=== PATIENT | male | born 1950 | race Caucasian/White ===

== ENCOUNTER → 2017-07-12 | Outpatient (CLI) | payer BC, MEDICARE ==
--- NOTE | 2017-07-12 08:39 | CTL ---
EXAMINATION TYPE: CT Low Dose Lung DATE OF EXAM ORDERED: 07/12/2017 COMPARISON: None HISTORY: . Low Dose CT Lung Screening CT DLP: [address] CTDI: 3.1 mGy IV CONTRAST USED: None. SCREENING VISIT: First visit COMPARISON: None. TECHNIQUE: Low dose computed tomography scan was performed through the chest at 1 millimeter thick se ctions and reconstructed images in the coronal plane at [address] DIAGNOSTIC QUALITY: Satisfactory FINDINGS: LUNG NODULES: Not presentLeft lung: no nodules identified.Right lung: no nodules identified. LUNGS: COPD: Severity: Mild Fibrosis: Severity:None Lymph nodes: None Other findings: Chronic post inflammatory change left upper lobe. Linear parenchymal scar. RIGHT PLEURAL SPACE: Effusion: None Calcification: None Thickening: None Pneumothorax: None LEFT PLEURAL SPACE: Effusion: None Calcification: None Thickening: None Pneumothorax: None HEART: Heart Size: Mildly enlarged Coronary calcification: Moderate Pericardial effusion: None OTHER FINDINGS: Upper abdomen: No significant abnormality Bony thorax: Degenerative changes Supraclavicular region: No significant abnormalityOther: No significant abnormalityI IMPRESSION: No suspicious nodules identified. FOLLOW UP CT CHEST RECOMMENDATION: Follow-up screening in one year CT LUNG RAD: Negative LUNG RAD CATEGORY category 1
--- NOTE | 2017-07-12 08:53 | US ---
EXAMINATION TYPE: US duplex aorta DATE OF EXAM: 07/12/2017 COMPARISON: NONE CLINICAL HISTORY: 66-year-old male Z13.6 screening for cardiovascular disorder. Previous smoker, no f amily hx of AAA, HTN, high cholesterol . TECHNIQUE: Multiple sonographic images of the abdominal aorta are obtained. FINDINGS: COFFEE WEIGHER NOTES: Suboptimal exam due to overlying bowel gas. EXAM MEASUREMENTS: Abdominal Aorta: Proximal: 2.1 x 2.4 cm Mid: 1.6 x 1.8 cm Distal: 1.6 x 1.9 cm Bifurcation: Right- 0.7 x 1.2 cm Left- 0.8 x 1.3 cm Incidentally, there is diffuse increased echogenicity of the liver. IMPRESSION: 1. Exam limitations due to prominent shadowing from bowel gas. No evidence for AAA. 2. Incidental hepatic steatosis.
== END | disposition home or self-care (01) ==
LOC: RADUSMAIN 07:44
PROVIDERS: ATTEND Family Medicine
DX: Z12.2 Encounter for screening for malignant neoplasm of respiratory organs (principal); Z87.891 Personal history of nicotine dependence; Z13.6 Encounter for screening for cardiovascular disorders
CPT/HCPCS: 93979; G0297

== ENCOUNTER 2017-10-20 06:44 | Day surgery (SDC) | payer BC ==
[2017-10-15 13:10] VITALS: BMI 31.0
--- NOTE | 2017-10-19 12:39 | HP ---
HISTORY AND PHYSICAL DATE OF SERVICE: 10/20/2017 Dave Brewster is a 67-year-old patient seen with progressive right shoulder pain. Treatment options were discussed. He elected to proceed with shoulder arthroscopy. Consent regarding procedure was obtained. Medical clearance was provided by Dr. Leal. PAST MEDICAL HISTORY: Hyperlipidemia, [id number] diabetes, COPD. PAST SURGICAL HISTORY: Herniorrhaphy. DAILY MEDICATIONS: 1. Ibuprofen. 2. Losartan. 3. Lovastatin. 4. Metformin. 5. Guy. 6. Potassium. ALLERGIES: None reported. SOCIAL HISTORY: Patient denies tobacco use. PHYSICAL EVALUATION RIGHT SHOULDER: Flexion 80 degrees, abduction 80 degrees, external rotation is 20 degrees. Tenderness along the anterior lateral acromion and rotator cuff insertion site. Positive impingement 80 degrees. Drop-arm sign is positive. Distal neurovascular exam is intact. RIGHT SHOULDER RADIOGRAPHS: Revealed a type 2 anterior acromioclavicular joint osteoarthritis and cystic changes of the greater tuberosity. A right shoulder MRI revealed a rotator cuff tendon tear. IMPRESSION: 1. Right shoulder impingement with rotator cuff tear and acromioclavicular joint osteoarthritis. 2. Hypertension. 3. Hyperlipidemia. PLAN: Right shoulder arthroscopy with subacromial decompression, probable arthroscopic rotator cuff repair, probable Freida procedure and debridement. MMODL / IJN: [id number] /
[~2017-10-20 06:44] MED LIST: ceFAZolin IN SWFI 2 GM/20 ML SYRINGE IVP ONE
[2017-10-20] MEDS ORDERED: LIDOCAINE 1% 20 ML VIAL (10MG/ML) FOR IV START INTRADERMA PRN (06:52)
[2017-10-20] MEDS ORDERED: fentaNYL (PF) 50 MCG/ML 20 ML VIAL IVP PRN (06:52)
[2017-10-20] MEDS ORDERED: MIDAZOLAM 2 MG/2 ML VIAL IV PRN (06:52)
[2017-10-20] MEDS ORDERED: LACTATED RINGERS 1,000 ML IV SCH (06:52)
[2017-10-20] MEDS ORDERED: HYDROmorphone 0.5 MG/0.5 ML SYRINGE IVP PRN (06:52)
[2017-10-20] MEDS ORDERED: ONDANSETRON 4 MG/2 ML VIAL IVP ONE (06:52)
[2017-10-20] MEDS ORDERED: DEXAMETHASONE SOD PHOSPHATE 10 MG/ML 1 ML VIAL IV ONE (06:52)
[2017-10-20 07:45] LABS: Glucose,Whole Blood 124 mg/dL (75-99)
[2017-10-20] MEDS ORDERED: SUCCINYLCHOLINE CHLORIDE 100 MG/5 ML SYR IV ONE (08:30)
[2017-10-20] MEDS ORDERED: PROPOFOL 10 MG/ML 20 ML VIAL IV ONE (08:30)
[2017-10-20] MEDS ORDERED: ROPIVACAINE 5 MG/ML 30 ML VIAL ONE (08:30)
[2017-10-20] MEDS ORDERED: LIDOCAINE 2%-EPI 1:100,000 20 ML VIAL ONE (08:30)
[2017-10-20] MEDS ORDERED: LIDOCAINE 1% INJ 10MG/ML (20 ML MDV) ONE (08:30)
[2017-10-20] MEDS ORDERED: fentaNYL (PF) 50 MCG/ML 2 ML AMP ONE (08:30)
--- NOTE | 2017-10-20 09:17 | P.ONQ ---
Anesthesiology Proc Note - PNB - Peripheral Nerve Block Performed Right Interscalene Indication: Acute Post-Operative Pain, Requested by physician (Sole) Sedation Type: Sedate with meaningful contact maintained Preparation: Sterile Prep Position: Supine Catheter: None Needle Types: Other (see comment) (Stu) Needle Size: 50mm (2") Needle Gauge: 20, 21 Technique: Ultrasound (13cc Ropivacaine, 13cc Lidocaine 1% with 1:100,000 epi) Blood Aspirated: No Pain Paresthesia on Injection Noted: No Resistance on Injection: Normal Events: Uneventful and Well Tolerated
[2017-10-20] MEDS ORDERED: LACTATED RINGERS 1,000 ML IV ONE (10:17)
--- NOTE | 2017-10-20 10:40 | P.OP ---
Date of Procedure: 10/20/17 Preoperative Diagnosis: Right shoulder impingement Postoperative Diagnosis: 1. Right shoulder rotator cuff tear 2. Right shoulder impingement 3. Right shoulder acromioclavicular joint osteoarthritis 4. Right shoulder partial biceps tendon tear 5. Right shoulder anterior/superior labral tears 6. 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 Right shoulder grade 2/3 chondromalacia glenoid fossa Procedure(s) Performed: 1. Right shoulder arthroscopic rotator cuff repair 2. Right shoulder arthroscopic subacromial decompression 3. Right shoulder arthroscopic Freida procedure 4. Right shoulder arthroscopic biceps tenotomy 5. Right shoulder arthroscopic debridement labral tear 6. Right shoulder arthroscopic chondroplasty humeral head 7. Right shoulder arthroscopic chondroplasty glenoid Implants: 5-peek anchors Anesthesia: GETA, regional (Interscalene block) Surgeon: Danielito Whipple Millwright #1: Dereck Jarquin Estimated Blood Loss (ml): 15 Pathology: none sent Condition: stable Disposition: PACU Indications for Procedure: 67-year-old patient seen with progressive right shoulder pain. After treatment options were discussed, he elected to proceed with arthroscopy. Operative Findings: see description of procedure Description of Procedure: Patient underwent a shoulder block by department of anesthesia. The patient was then taken to the operative suite. The patient underwent a general anesthetic by the department of anesthesia. The patient was placed into a lateral position and secured. There was appropriate padding of the bony prominence. Right shoulder was then prepped and draped in normal sterile orthopedic fashion. We placed the extremity in 10 pounds of longitudinal traction. A posterior incision was now made for a posterior working portal site. The trocar and cannula were inserted into the glenohumeral joint. Arthroscopy was initiated. Spinal needle was now inserted anteriorly, to ascertain the anterior working portal site. An incision was now made in that area, a trocar was inserted followed by a probe. There was superficial tearing of the anterior and superior labrum present. There was partial tearing long head biceps tendon present. There was no obvious large rotator cuff tear clearly visualized from the glenohumeral side. There was an area of grade 3/4 chondromalacia of the humeral head with some peripheral osteochondral tears. That area was central and measured approximately 2 x 3 cm. There was an area of grade 2/3 chondromalacia of the glenoid anteriorly. There was some osteochondral tears present there as well. The posterior and inferior labrum were found to be stable. I performed an arthroscopic biceps tenotomy. I debrided the labral tears down to stable tissue. Chondroplasty performed of both the humeral head and glenoid fossa down to stable osteochondral tissue. The residual labrum and osteochondral areas were found to be stable. Instruments were now removed from glenohumeral joint. Utilizing the posterior working portal site, the trocar and cannula were inserted into the subacromial space. Arthroscopy initiated. I made an incision 2 fingerbreadths lateral to the acromion. I introduced my trocar followed by my ArthroCare ablator. I now began ablating thick subacromial bursal tissue, which exposed the undersurface of the anterior acromion. This was diminished subacromial space. There was a very prominent anterior acromion. A motorized bur was introduced and a subacromial decompression was performed. I also excised some osteophytes off the inferior aspect of the distal clavicle. The AC joint was visualized and noted to be fairly arthritic. Our motorized bur was introduced in the anterior portal site and a Freida procedure was performed without difficulty, decompressing the AC joint nicely. I turned my attention to the rotator cuff. There was a distal supraspinatus rotator cuff tendon tear present. The measured approximately 2.5 cm and retracted approximately 1 cm. I debrided the margins getting down to stable tendon tissue. I abraded the footprint with a motorized bur. I created an building surveyor he portal site off the lateral acromion. I introduced 2 medial row anchors with 2 sutures each. We passed all 8 limbs of suture through good bites of rotator cuff tendon. We noted potential areas of dogears anteriorly and posteriorly. I passed 3 suture loop sutures pull the tendon over the footprint and introduced a far lateral anchor. I now crisscrossed our 8 sutures and introduced 2 additional lateral anchors compressing the tendon along the footprint very nicely. All residual suture limbs were clipped. We had a good stable repair. I injected 1 mL of UCT intra-articular. Instruments now removed from the portal sites. All portal sites were approximated with nylon suture. Sterile dressings were applied followed by a shoulder immobilizer. Amish BRADSHAW assisted with the procedure. The patient was awakened, transferred to a bed, and taken to recovery in stable condition.
[2017-10-20 10:45] VITALS: TEMP 96
[2017-10-20] MEDS ORDERED: diphenhydrAMINE 50 MG/ML 1 ML VIAL IM ONE (10:49)
[2017-10-20 11:20] VITALS: RESP 18
[2017-10-20 11:55] VITALS: BP 117/70; PULSE 73
== END 2017-10-20 12:45 | disposition home or self-care (01) ==
LOC: OR 06:44
PROVIDERS: ATTEND Orthopaedic Surgery
DX: M75.101 Unspecified rotator cuff tear or rupture of right shoulder, not specified as traumatic (principal); M75.41 Impingement syndrome of right shoulder; M19.011 Primary osteoarthritis, right shoulder; S46.111A Strain of muscle, fascia and tendon of long head of biceps, right arm, initial encounter; X58.XXXA Exposure to other specified factors, initial encounter; S43.431A Superior glenoid labrum lesion of right shoulder, initial encounter; M94.211 Chondromalacia, right shoulder; M25.711 Osteophyte, right shoulder; E78.5 Hyperlipidemia, unspecified; E11.9 Type 2 diabetes mellitus without complications; Z79.84 Long term (current) use of oral hypoglycemic drugs; J44.9 Chronic obstructive pulmonary disease, unspecified; Z79.899 Other long term (current) drug therapy; Z79.891 Long term (current) use of opiate analgesic
CPT/HCPCS: 64415; 29826; 29827; 29824; C1713 ×2; C1765; J2250; J1200; J1100; J2405; J2001; J3010; J2795; J0330; J2704; J0690

== ENCOUNTER → 2018-08-08 | Outpatient (CLI) | payer MEDICARE, BC ==
--- NOTE | 2018-08-08 09:48 | CTL ---
EXAMINATION TYPE: CT Low Dose Lung DATE OF EXAM ORDERED: 08/08/2018 HISTORY: Z 87.891. Lung cancer screening CT DLP: [address] CTDI: 2.49 mGy Automated exposure control for dose reduction was used. SCREENING VISIT: 2 COMPARISON: Prior exam 07/12/2017 low dose lung screening TECHNIQUE: Low dose computed tomography scan was performed through the chest at 1 mm thick sections a nd reconstructed images in the coronal plane at [address] DIAGNOSTIC QUALITY: Satisfactory FINDINGS: LUNG NODULES: None. LUNGS: COPD: Severity: Mild Fibrosis: Severity: Mild, some minimal lingula scarring persists on the left Lymph nodes: Not enlarged Other findings: Lingular scarring RIGHT PLEURAL SPACE: Effusion: None Calcification: None Thickening: None Pneumothorax: Not present LEFT PLEURAL SPACE: Effusion: None Calcification: None Thickening: None Pneumothorax: Not present HEART: Heart Size: Normal Coronary calcification: Three-vessel Pericardial effusion: Not present OTHER FINDINGS: Upper abdomen: Suspect a small hiatal hernia. Liver shows low attenuation possibly due to underlying hepatic steatosis. Bony thorax: Thoracic spondylosis is present Supraclavicular region: Unremarkable Other: No significant abnormality. IMPRESSION: Negative FOLLOW UP CT CHEST RECOMMENDATION: [address] LUNG RAD: 1
== END | disposition home or self-care (01) ==
LOC: RADCTMAIN 08:03
PROVIDERS: ATTEND Family Medicine
DX: Z12.2 Encounter for screening for malignant neoplasm of respiratory organs (principal); Z87.891 Personal history of nicotine dependence

== ENCOUNTER → 2020-05-21 | Outpatient (CLI) | payer MEDICARE, BC ==
--- NOTE | 2020-05-21 09:01 | CT ---
EXAMINATION TYPE: CT iac wo con DATE OF EXAM: 05/21/2020 COMPARISON: None HISTORY: Lt Ear Cholesteatoma CT DLP: 150mGycm Automated exposure control for dose reduction was used. FINDINGS: The external auditory canals are patent bilaterally. Mastoid air cells show no evidence of abnormal opacification bilaterally. The middle ear ossicles are symmetric and unremarkable. There is no evidence of suspicious surrounding soft tissue density to suggest cholesteatoma. The scutum is preserved bilaterally. The cochlea and the semicircular canals are symmetric and unremarkable. Ves tibular aqueduct and internal carotid canal appear unremarkable. Temporomandibular joints are mainta ined bilaterally. Changes of chronic sinusitis noted. Nasopharynx and visualized oropharynx symmetric. Visualized parot id glands have a normal appearance. Intraorbital and intracranial structures visualized are symmetric . IMPRESSION: 1. No diagnostic evidence of a cholesteatoma.
== END | disposition home or self-care (01) ==
LOC: RADCTMAIN 08:35
PROVIDERS: ATTEND Family Medicine
DX: H71.92 Unspecified cholesteatoma, left ear (principal)
CPT/HCPCS: 70480

== ENCOUNTER → 2021-04-08 | Outpatient (CLI) | payer MEDICARE, BC ==
--- NOTE | 2021-04-08 21:37 | CTL ---
EXAMINATION TYPE: CT Low Dose Lung DATE OF EXAM ORDERED: 04/08/2021 HISTORY: Personal nicotine dependence. Lung cancer screening CT DLP: [address] CTDI: 2.14 mGy Automated exposure control for dose reduction was used. SCREENING VISIT: Follow-up COMPARISON: 08/08/2018 TECHNIQUE: Low dose computed tomography scan was performed through the chest at 1 mm thick sections a nd reconstructed images in the coronal plane at [address] DIAGNOSTIC QUALITY: Satisfactory FINDINGS: LUNG NODULES: None. LUNGS: COPD: Severity: None Fibrosis: Severity: None Lymph nodes: No enlarged lymphadenopathy Other findings: None RIGHT PLEURAL SPACE: Effusion: None Calcification: None Thickening: None Pneumothorax: None LEFT PLEURAL SPACE: Effusion: None Calcification: None Thickening: None Pneumothorax: None HEART: Heart Size: Normal Coronary calcification: Moderate Pericardial effusion: None OTHER FINDINGS: Upper abdomen: Normal Bony thorax: Normal Supraclavicular region: Normal Other: Ascending thoracic aorta at the level the main pulmonary artery measures 4.0 cm. The main pul monary artery at the bifurcation measures 2.6 cm. IMPRESSION: 1. No suspicious changes to suggest neoplasm. 2. Ascending thoracic aortic aneurysm. FOLLOW UP CT CHEST RECOMMENDATION: Yes, low-dose CT chest one year CT LUNG RAD: 2
== END | disposition home or self-care (01) ==
LOC: RADCTMAIN 06:38
PROVIDERS: ATTEND Family Medicine
DX: I71.2 Thoracic aortic aneurysm, without rupture (principal); Z87.891 Personal history of nicotine dependence
CPT/HCPCS: 71271

== ENCOUNTER → 2021-05-12 | Outpatient (CLI) | payer MEDICARE, BC ==
--- NOTE | 2021-05-12 10:58 | ECHOF ---
Referral Reason:I10 Hypertension MEASUREMENTS -------- HEIGHT: 172.7 cm WEIGHT: 95.3 kg BP: 136/63 RVIDd: 3.3 cm (< 3.3) IVSd: 1.4 cm (0.6 - 1.1) LVIDd: 3.9 cm (3.9 - 5.3) LVPWd: 1.4 cm (0.6 - 1.1) IVSs: 1.7 cm LVIDs: 2.6 cm LVPWs: 2.0 cm LA Diam: 3.7 cm (2.7 - 3.8) LAESV Index (A-L): 22.15 ml/m Ao Diam: 3.7 cm (2.0 - 3.7) AV Cusp: 2.2 cm (1.5 - 2.6) MV EXCURSION: 22.560 mm (> 18.000) MV EF SLOPE: 29 mm/s (70 - 150) EPSS: 0.4 cm MV E Brad: 1.03 m/s MV DecT: 271 ms MV A Brad: 0.93 m/s MV E/A Ratio: 1.10 RAP: 5.00 mmHg RVSP: 37.87 mmHg FINDINGS -------- Sinus rhythm. This was a technically adequate study. The left ventricular size is normal. There is moderate concentric left ventricular hypertrophy. O verall left ventricular systolic function is low-normal with, an EF between 50 - 55 %. Basal inferi or LV wall motion is hypokinetic. Basal inferoseptal LV wall motion is hypokinetic. The right ventricle is mildly enlarged. Normal LA size by volume 22+/-6 ml/m2. The right atrium is normal in size. Interatrial and interventricular septum intact. There is mild aortic valve sclerosis. The mitral valve leaflets are mildly thickened. Argd-hv-hjubwaxw mitral regurgitation is present. There is mild mitral valve prolapse , predominately a posteriorly directed jet. Mild prolapse of t he anterior mitral valve leaflet. Mild tricuspid regurgitation present. There is mild pulmonary hypertension. The right ventricular systolic pressure, as measured by Doppler, is 37.87mmHg. The pulmonic valve was not well visualized. The aortic root size is normal. Normal inferior vena cava with normal inspiratory collapse consistent with estimated right atrial pre ssure of 5 mmHg. There is no pericardial effusion. CONCLUSIONS -------- 1. The left ventricular size is normal. 2. There is moderate concentric left ventricular hypertrophy. 3. Overall left ventricular systolic function is low-normal with, an EF between 50 - 55 %. 4. Basal inferior LV wall motion is hypokinetic. 5. Basal inferoseptal LV wall motion is hypokinetic. 6. The right ventricle is mildly enlarged. 7. Normal LA size by volume 22+/-6 ml/m2. 8. There is mild aortic valve sclerosis. 9. The mitral valve leaflets are mildly thickened. 10. Jnfr-qc-yxezttgx mitral regurgitation is present. 11. There is mild mitral valve prolapse. 12. , predominately a posteriorly directed jet. 13. Mild prolapse of the anterior mitral valve leaflet. 14. Mild tricuspid regurgitation present. 15. There is mild pulmonary hypertension. 16. The right ventricular systolic pressure, as measured by Doppler, is 37.87mmHg. 17. There is no pericardial effusion. CAR PACKER: Doreen Monae RDCS
--- NOTE | 2021-05-12 13:11 | NM ---
EXAMINATION TYPE: NM stress lexiscan cardiolite DATE OF EXAM: 05/12/2021 COMPARISON: NONE HISTORY: I10 Hypertension TECHNIQUE: After the intravenous administration of 9.9 mCi Tc 99m Sestamibi - Cardiolite resting SPE CT images acquired 45 minutes post injection. The patient received 0.4mg Lexiscan, 24.7 mCi Tc 99m Sestamibi - Stress images obtained [address] injection FINDINGS: Review of stress and rest SPECT images demonstrates decreased perfusion involving the apical lateral wall on both rest and stress images although there are areas that appear to worsen suggesting underly ing stress-induced ischemia. Gated analysis shows normal wall motion with an estimated left ventricul ar ejection fraction of 52 %. IMPRESSION: Areas of a remote insult as noted above with interposed areas of stress-induced ischemia.
--- NOTE | 2021-05-12 15:22 | EST ---
EXERCISE STRESS DATE OF SERVICE: 05/12/2021 AGE: 70 SEX: M HT: 5'8" WT: 210 lbs. PROTOCOL: Lexiscan STAGE: NA DURATION OF EXERCISE: NA HEART RATE REST: 79 BLOOD PRESSURE REST: 142/71 MAXIMUM HEART RATE ACHIEVED: 94 MAXIMUM BLOOD PRESSURE: 146/72 85% MPHR: 128 100% MPHR: 150 METS: NA INDICATIONS: Hypertension CLINICAL INFORMATION: STRESS DATA: Heart rate 79, pressure is 142/71 mmHg. Baseline EKG showed sinus mechanism. Lexiscan in the amount of 0.4 mg was given over 15 seconds per protocol. Max heart rate was 94 beats per minute. Maximum pressure was 142/71 mmHg. Clinically the patient did not have any symptoms and the EKG did not show any significant ST or T- wave abnormalities concerning for ischemia. CONCLUSION: 1. Nondiagnostic electrocardiogram stress testing in response to Lexiscan. 2. Please follow up on the Cardiolite portion on a separate report from Radiology Department. MMODL / IJN: [id number] /
== END | disposition home or self-care (01) ==
LOC: RADECHMAIN 08:49
PROVIDERS: ATTEND Family Medicine
DX: I34.0 Nonrheumatic mitral (valve) insufficiency (principal); I27.20 Pulmonary hypertension, unspecified
CPT/HCPCS: 93017; 93306; 78452; A9500

== ENCOUNTER → 2022-01-02 | Outpatient (CLI) | payer MEDICARE, BC ==
--- NOTE | 2022-01-02 11:25 | MR ---
EXAMINATION TYPE: MR brain and iac wo/w con DATE OF EXAM: 01/02/2022 COMPARISON: CT internal auditory canal 05/21/2020 HISTORY: Dizziness and giddiness TECHNIQUE: Multiplanar, multisequence images of the brain and brainstem is performed without and with IV contras t, utilizing 10 mL intravenous Gadavist. Small ofiey-jv-xgge and high resolution images through the i nternal auditory canals. FINDINGS: Diffusion weighted images demonstrate no evidence of a recent infarct or other diffusion ab normality. There is no extra-axial fluid collection. Periventricular and pericallosal confluent, sca ttered and subcortical hyperintensities are present on inversion recovery T2-weighted sequences. The ventricular system and cisternal spaces are normal in size and appearance. The brain volume is age a ppropriate, cortical atrophy is present. Internal auditory canal show no abnormal enhancement, no evident mass, there is no cerebellopontine a ngle abnormality. Midline structures demonstrate normal morphology. The craniocervical junction appears within normal limits. Post contrast images demonstrate no abnormal enhancement. The dural venous sinuses appear pa tent. The visualized sinuses are remarkable for inflammatory and the globes are intact. IMPRESSION: Normal internal auditory canals. Age-related changes of atrophy and chronic small vessel ischemia. Sinus disease.
== END | disposition home or self-care (01) ==
LOC: RADMRIMAIN 09:10
PROVIDERS: ATTEND Family Medicine
DX: I67.82 Cerebral ischemia (principal); G31.9 Degenerative disease of nervous system, unspecified
CPT/HCPCS: 70553; A9585

== ENCOUNTER → 2023-05-04 | Outpatient (CLI) | payer MEDICARE, BC ==
--- NOTE | 2023-05-09 22:35 | MR ---
EXAMINATION TYPE: MR brain wo/w con DATE OF EXAM: 05/04/2023 COMPARISON: 01/02/2022 HISTORY: 72-year-old male R51.9, headache, R41.3, amnesia, Headache, dizziness, memory impairment. TECHNIQUE: Multiplanar, multisequence images of the brain and brainstem were acquired before and aft er administration of 7.5 mL IV Gadavist. Diffusion weighted imaging is performed. FINDINGS: No evidence for acute infarction, hemorrhage, mass, mass effect, midline shift, herniation, effacemen t of basal cisterns, or extra-axial fluid collection. Major intracranial flow voids are intact. T2/FLAIR weighted sequences show moderate patchy and scattered bright white matter foci throughout th e periventricular, deep white matter, and subcortical regions of both cerebral hemispheres, overall u nchanged from prior. There is moderate generalized supratentorial volume loss. Hydrocephalus with Aric's ratio of 0.38 is slightly increased from 01/02/2022. Midline structures demonstrate normal morphology. The craniocervical junction is normal. Post contrast images demonstrate no evidence of pathologic enhancement. Dural venous sinuses are pat ent. Moderate mucosal thickening ethmoid air cells. 1.8 cm mucosal retention cyst floor of the left maxill evon sinus. Globes are intact. IMPRESSION: 1. Moderate generalized atrophy. Mild to moderate hydrocephalus may be on an ex vacuo basis from cent ral cerebral atrophy but shows slight interval increase from 01/02/2022. Correlate to exclude a compone nt of NPH. 2. Chronic T2 bright white matter change with moderate burden likely relating to chronic small vessel ischemic disease. 3. No acute intracranial abnormality seen.
== END | disposition home or self-care (01) ==
LOC: RADMRIMAIN 10:02
PROVIDERS: ATTEND Family Medicine
DX: G31.9 Degenerative disease of nervous system, unspecified (principal); G91.9 Hydrocephalus, unspecified; R51.9 Headache, unspecified; R90.82 White matter disease, unspecified
CPT/HCPCS: 70553; A9585

== ENCOUNTER → 2023-07-19 | Outpatient (CLI) | payer MEDICARE, BC ==
--- NOTE | 2023-07-19 16:31 | MR ---
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 The patient was then given intravenous contrast and multi planar, T1 fat-saturation images wer e obtained. IV Contrast: 9 cc Gadavist FINDINGS: Similar generalized atrophy with dilation of the ventricular system i which is s not significantly ch anged. Cerebral atrophy with proportional dilation of ventricular system. Diffusion-weighted imaging shows no evidence of restricted diffusion to suggest acute/subacute infarct. Intracranial arterial f low voids are maintained. Midline structures show no abnormality. Scattered foci of high T2 signal in tensity are seen within the periventricular white matter. The susceptibility weighted images do not r eveal any evidence for micro-hemorrhage. After administration of gadolinium, no abnormal enhancement is seen. The bone marrow signal is within normal limits. Paranasal sinuses and mastoid air cells: Mild mucosal thickening of the left maxillary sinus. Visualized orbits: Orbital contents are intact. IMPRESSION: 1. Stable dilation of ventricular system with generalized cerebral atrophy. No evidence of intracrani al mass, acute/subacute infarct, or abnormal enhancement. 2. Nonspecific white matter changes, likely related to small vessel ischemic disease.
== END | disposition home or self-care (01) ==
LOC: RADMRIMAIN 13:08
PROVIDERS: ATTEND Family Medicine
DX: G91.2 (Idiopathic) normal pressure hydrocephalus (principal); R90.82 White matter disease, unspecified; G31.1 Senile degeneration of brain, not elsewhere classified
CPT/HCPCS: 70553; A9585

== ENCOUNTER 2023-08-18 12:51 | Inpatient (IN) | payer MEDICARE, BC ==
[2023-08-18] MEDS ORDERED: IPRATROPIUM-ALBUTEROL 3 ML NEB INHALATION STA (13:39)
[2023-08-18] MEDS ORDERED: SODIUM CHLORIDE 0.9% 1,000 ML IV STA (13:39)
--- NOTE | 2023-08-18 13:44 | ED ---
URI HPI - General Chief Complaint: Upper Respiratory Infection Stated Complaint: Cough,Low O2 Time Seen by Provider: 08/18/23 13:37 Source: patient, RN notes reviewed, old records reviewed, Caregiver Mode of arrival: ambulatory Limitations: no limitations - History of Present Illness Initial Comments: This is a 72-year-old male to the emergency department for evaluation weakness patient breath difficulty breathing breath for a week now. Not getting out of bed and just sleeping at home patient is significantly sick mL, increasing weakness increasing shortness of breath and persistent debility with low oxygen levels and difficulty catching his breath or chest pain MD Complaint: fever, cough, sore throat, nasal congestion -: week(s) Severity: moderate Severity scale (1-10): 6 Consistency: constant Improves With: nothing Worsens With: nothing Associated Symptoms: fever, chills Treatments Prior to Arrival: none - Related Data Home Medications Medication Instructions Recorded Confirmed Ascorbic Acid [Vitamin C] 500 mg PO DAILY 01/09/22 08/18/23 Fish Oil/Dha/Epa [Fish Oil 1,200 1 cap PO DAILY 01/09/22 08/18/23 mg Fish Oil] Multivit-Min/Folic/Vit K/Lycop 1 tab PO DAILY 01/09/22 08/18/23 [Men's Multivitamin Tablet] Cyanocobalamin (Vitamin B-12) 2,500 mcg PO DAILY 08/18/23 08/18/23 [Vitamin B-12] Dapagliflozin Propanediol [Farxiga] 10 mg PO DAILY 08/18/23 08/18/23 Lovastatin [Mevacor] 20 mg PO DAILY 08/18/23 08/18/23 Phenyleph/Acetaminophn/Doxylam 1 cap PO Q4H PRN 08/18/23 08/18/23 [Vicks Dayquil-Nyquil Sinex Cap] Previous Rx's Medication Instructions Recorded Albuterol Inhaler [Ventolin Hfa 2 puff INHALATION RT-QID PRN #1 08/22/23 Inhaler] each Budesonide-Formot 160-4.5 Mcg 2 puff INHALATION RT-BID #1 each 08/22/23 [Symbicort 160-4.5 Mcg Inhaler] dexAMETHasone ORAL [Hexadrol] 6 mg PO DAILY #15 tab 08/22/23 Allergies Allergy/AdvReac Type Severity Reaction Status Date / Time No Known Allergies Allergy Verified 08/18/23 13:15 Review of Systems ROS Statement: Those systems with pertinent positive or pertinent negative responses have been documented in the HPI. ROS Other: All systems not noted in ROS Statement are negative. Past Medical History Past Medical History: COPD, Diabetes Mellitus, Hyperlipidemia, Hypertension, Pneumonia Additional Past Medical History / Comment(s): hx lumbosacral strain History of Any Multi-Drug Resistant Organisms: None Reported Past Surgical History: Hernia Repair Additional Past Surgical History / Comment(s): vasectomy Past Anesthesia/Blood Transfusion Reactions: No Reported Reaction Past Psychological History: No Psychological Hx Reported Smoking Status: Never smoker Past Alcohol Use History: Rare - Past Family History Father Family Medical History: Cancer Sister(s) Family Medical History: Cancer Brother(s) Family Medical History: Myocardial Infarction ([place]) General Exam Limitations: no limitations General appearance: alert, anxious, in distress Head exam: Present: atraumatic, normocephalic, normal inspection Eye exam: Present: normal appearance, PERRL, EOMI. Absent: scleral icterus, conjunctival injection, periorbital swelling ENT exam: Present: normal exam, mucous membranes moist Neck exam: Present: normal inspection. Absent: tenderness, meningismus, lymphadenopathy Respiratory exam: Present: normal lung sounds bilaterally. Absent: respiratory distress, wheezes, rales, rhonchi, stridor Cardiovascular Exam: Present: regular rate, normal rhythm, normal heart sounds. Absent: systolic murmur, diastolic murmur, rubs, gallop, clicks GI/Abdominal exam: Present: soft, normal bowel sounds. Absent: distended, tenderness, guarding, rebound, rigid Extremities exam: Present: normal inspection, full ROM, normal capillary refill. Absent: tenderness, pedal edema, joint swelling, calf tenderness Back exam: Present: normal inspection Neurological exam: Present: alert, oriented X3, CN II-XII intact Psychiatric exam: Present: normal affect, normal mood Skin exam: Present: warm, dry, intact, normal color. Absent: rash Course Vital Signs 08/18/23 08/18/23 08/18/23 13:11 13:51 14:00 Temperature 98.2 F Pulse Rate 92 85 80 Respiratory 17 18 18 Rate Blood Pressure 83/48 116/58 130/68 O2 Sat by Pulse 91 L 91 L 91 L Oximetry 08/18/23 08/18/23 08/18/23 14:10 14:30 15:00 Temperature Pulse Rate 82 77 Respiratory 22 16 18 Rate Blood Pressure 114/64 136/56 O2 Sat by Pulse 92 L 90 L Oximetry 08/18/23 08/18/23 08/18/23 15:30 16:00 16:23 Temperature Pulse Rate 77 86 87 Respiratory 20 20 18 Rate Blood Pressure 138/56 102/86 118/59 O2 Sat by Pulse 90 L 91 L 91 L Oximetry 08/18/23 08/18/23 08/18/23 16:30 17:00 17:30 Temperature Pulse Rate 85 82 82 Respiratory 22 20 20 Rate Blood Pressure 118/59 94/47 105/53 O2 Sat by Pulse 91 L 90 L 92 L Oximetry 08/18/23 08/18/23 08/18/23 18:00 18:30 21:23 Temperature 99.5 F Pulse Rate 84 87 88 Respiratory 20 22 Rate Blood Pressure 102/47 103/43 104/58 O2 Sat by Pulse 88 L 91 L 94 L Oximetry 08/19/23 02:19 Temperature 98.2 F Pulse Rate 70 Respiratory 20 Rate Blood Pressure 117/65 O2 Sat by Pulse 92 L Oximetry - Reevaluation(s) Reevaluation #1: 08/18/23 21:32 Records reviewed Reevaluation #2: 08/18/23 21:32 Patient remains hypoxic here in the ER Reevaluation #3: 08/18/23 21:32 Patient informed results questions answered Reevaluation #4: 08/18/23 21:10 Was pt. sent in by a medical professional or institution (, PA, ENGINE MONITOR, urgent care, hospital, or longterm...) When possible be specific @ -no Did you speak to anyone other than the patient for history (EMS, parent, family, police, friend...)? What history was obtained from this source @ -no Did you review nursing and triage notes (agree or disagree)? Why? @ -agree Are old charts reviewed (outside hosp., previous admission, EMS record, old EKG, old radiological studies, urgent care reports/EKG's, longterm records)? Report findings @ -yes Differential Diagnosis (chest pain, altered mental status, abdominal pain women, abdominal pain men, vaginal bleeding, weakness, fever, dyspnea, syncope, headache, dizziness, GI bleed, back pain, seizure, CVA, palpatations, mental health, musculoskeletal)? @ -prior EKG interpreted by me (3pts min.). @ -yes X-rays interpreted by me (1pt min.). @ -yes positive for Kovic pneumonia CT interpreted by me (1pt min.). @ -no U/S interpreted by me (1pt. min.). @ -no What testing was considered but not performed or refused? (CT, X-rays, U/S, labs)? Why? @ -none What meds were considered but not given or refused? Why? @ -none Did you discuss the management of the patient with other professionals (professionals i.e. , PA, ENGINE MONITOR, lab, RT, psych nurse, social group worker, biomedical engineering director, teacher, tax revenue officer, egg caser)? Give summary @ -no Was smoking cessation discussed for >3mins.? @ -no Was critical care preformed (if so, how long)? @ -yes31 Were there social determinants of health that impacted care today? How? (H omelessness, low income, unemployed, alcoholism, drug addiction, transportation, low edu. Level, literacy, decrease access to med. care, [place] [facility], rehab)? @ -none Was there de-escalation of care discussed even if they declined (Discuss DNR or withdrawal of care, Hospice)? DNR status @ -no What co-morbidities impacted this encounter? (DM, HTN, Smoking, COPD, CAD, Cancer, CVA, ARF, Chemo, Hep., AIDS, mental health diagnosis, sleep apnea, morbid obesity)? @ -none Was patient admitted / discharged? Hospital course, mention meds given and route, prescriptions, significant lab abnormalities, going to OR and other pertinent info. @ - 72 male to the emergency department for evaluation of severe weakness shortness of breath. Patient has persistent difficulty breathing here in the ER and can be admitted for IV antibiotics and pneumonia COPD hypoxia patient on coronavirus Admitted Undiagnosed new problem with uncertain prognosis? @ -no Drug Therapy requiring intensive monitoring for toxicity (Heparin, Nitro, Insulin, Cardizem)? @ -no Were any procedures done? @ -no Diagnosis/symptom? @ -Coronavirus with COPD and pneumonia, hypoxia Acute, or Chronic, or Acute on Chronic? @ -Acute Uncomplicated (without systemic symptoms) or Complicated (systemic symptoms)? @ -Complicated Side effects of treatment? @ -no Exacerbation, Progression, or Severe Exacerbation? @ -exacerbation Poses a threat to life or bodily function? How? (Chest pain, [place], [place], pneumonia, PE, COPD, DKA, ARF, appy, cholecystitis, CVA, Diverticulitis, Homicidal, Suicidal, threat to staff... and all critical care pts) @ -yes coronavirus Reevaluation #5: Differential Dyspnea: Coronary syndrome, arrhythmia, tamponade, asthma, COPD, pulmonary embolism, pneumonia, pneumothorax, pulmonary effusion, anaphylaxis, diabetic ketoacidosis, flailed chest, pulmonary contusion, diaphragmatic rupture, anemia, neuromuscular, this is not meant to be an all-inclusive list. Medical Decision Making - Medical Decision Making 72 male to the emergency department for evaluation of severe weakness shortness of breath. Patient has persistent difficulty breathing here in the ER and can be admitted for IV antibiotics and pneumonia COPD hypoxia patient on coronavirus - Lab Data Result diagrams: 08/22/23 04:59 08/22/23 04:59 Lab Results 08/18/23 08/18/23 08/18/23 Range/Units 14:00 14:00 14:00 WBC 17.9 H (3.8-10.6) k/uL RBC 4.80 (4.30-5.90) m/uL Hgb 15.3 (13.0-17.5) gm/dL Hct 45.3 (39.0-53.0) % MCV 94.3 (80.0-100.0) fL MCH 32.0 (25.0-35.0) pg MCHC 33.9 (31.0-37.0) g/dL RDW 13.4 (11.5-15.5) % Plt Count 411 (150-450) k/uL MPV 8.1 Neutrophils % 87 % Lymphocytes % 5 % Monocytes % 4 % Eosinophils % 1 % Basophils % 1 % Neutrophils # 15.6 H (1.3-7.7) k/uL Lymphocytes # 0.9 L (1.0-4.8) k/uL Monocytes # 0.7 (0-1.0) k/uL Eosinophils # 0.1 (0-0.7) k/uL Basophils # 0.1 (0-0.2) k/uL PT 11.1 (10.0-12.5) sec INR 1.0 (<1.2) APTT 25.4 (22.0-30.0) sec Sodium 137 (137-145) mmol/L Potassium 4.4 (3.5-5.1) mmol/L Chloride 100 (98-107) mmol/L Carbon Dioxide 21 L (22-30) mmol/L Anion Gap 16 mmol/L BUN 51 H (9-20) mg/dL Creatinine 1.71 H (0.66-1.25) mg/dL Est GFR (CKD-EPI)AfAm 45 (>60 ml/min/1.73 sqM) Est GFR (CKD-EPI)NonAf 39 (>60 ml/min/1.73 sqM) Glucose 182 H (74-99) mg/dL Plasma Lactic Acid Eric (0.7-2.0) mmol/L Calcium 8.7 (8.4-10.2) mg/dL Magnesium 3.1 H (1.6-2.3) mg/dL Total Bilirubin 0.9 (0.2-1.3) mg/dL AST 65 H (17-59) U/L ALT 59 H (4-49) U/L Alkaline Phosphatase 202 H (38-126) U/L Troponin I (0.000-0.034) ng/mL NT-Pro-B Natriuret Pep 176 pg/mL Total Protein 7.1 (6.3-8.2) g/dL Albumin 3.5 (3.5-5.0) g/dL Influenza Type A (PCR) (Not Detectd) Influenza Type B (PCR) (Not Detectd) RSV (PCR) (Not Detectd) SARS-CoV-2 (PCR) (Not Detectd) 08/18/23 08/18/23 08/18/23 Range/Units 14:00 14:00 14:00 WBC (3.8-10.6) k/uL RBC (4.30-5.90) m/uL Hgb (13.0-17.5) gm/dL Hct (39.0-53.0) % MCV (80.0-100.0) fL MCH (25.0-35.0) pg MCHC (31.0-37.0) g/dL RDW (11.5-15.5) % Plt Count (150-450) k/uL MPV Neutrophils % % Lymphocytes % % Monocytes % % Eosinophils % % Basophils % % Neutrophils # (1.3-7.7) k/uL Lymphocytes # (1.0-4.8) k/uL Monocytes # (0-1.0) k/uL Eosinophils # (0-0.7) k/uL Basophils # (0-0.2) k/uL PT (10.0-12.5) sec INR (<1.2) APTT (22.0-30.0) sec Sodium (137-145) mmol/L Potassium (3.5-5.1) mmol/L Chloride (98-107) mmol/L Carbon Dioxide (22-30) mmol/L Anion Gap mmol/L BUN (9-20) mg/dL Creatinine (0.66-1.25) mg/dL Est GFR (CKD-EPI)AfAm (>60 ml/min/1.73 sqM) Est GFR (CKD-EPI)NonAf (>60 ml/min/1.73 sqM) Glucose (74-99) mg/dL Plasma Lactic Acid Eric 1.6 (0.7-2.0) mmol/L Calcium (8.4-10.2) mg/dL Magnesium (1.6-2.3) mg/dL Total Bilirubin (0.2-1.3) mg/dL AST (17-59) U/L ALT (4-49) U/L Alkaline Phosphatase (38-126) U/L Troponin I 0.013 (0.000-0.034) ng/mL NT-Pro-B Natriuret Pep pg/mL Total Protein (6.3-8.2) g/dL Albumin (3.5-5.0) g/dL Influenza Type A (PCR) Not Detected (Not Detectd) Influenza Type B (PCR) Not Detected (Not Detectd) RSV (PCR) Not Detected (Not Detectd) SARS-CoV-2 (PCR) Detected A (Not Detectd) - EKG Data -: EKG Interpreted by Me (EKG is sinus 86 DE 183 QRS 113 QTc 413) - Radiology Data Radiology results: report reviewed (Chest x-rays positive for pneumonia), image reviewed Critical Care Time Critical Care Time: Yes Total Critical Care Time: 31 Disposition Clinical Impression: COVID-19, Acute upper respiratory infection, Hypoxia, COPD (chronic obstructive pulmonary disease), Pneumonia Disposition: ADMITTED IP TO THIS HOSP Condition: Stable Is patient prescribed a controlled substance at d/c from ED?: No Time of Disposition: 17:25
--- NOTE | 2023-08-18 14:24 | XR ---
EXAMINATION TYPE: XR chest 1V portable DATE OF EXAM: 08/18/2023 COMPARISON: 06/22/2010 HISTORY: Shortness of breath TECHNIQUE: Frontal and lateral views of the chest are obtained. FINDINGS: Scattered senescent parenchymal changes noted. Hyperinflation compatible with COPD. Patchy left perihilar density as well as right medial lung base may reflect developing pneumonia. Heart size is stable. Mediastinal structures are stable and grossly unremarkable. No evidence for hilar prominence. Degenerative changes dorsal spine. IMPRESSION: 1. Patchy left perihilar density as well as right medial lung base may reflect developing pneumonia.
[2023-08-18 14:26] LABS: Basophils # (A) 0.1 k/uL (0-0.2); Basophils % (A) 1 %; Eosinophils # (A) 0.1 k/uL (0-0.7); Eosinophils % (A) 1 %; HCT 45.3 % (39.0-53.0); HGB 15.3 gm/dL (13.0-17.5); Lymphocytes # (A) 0.9 k/uL (1.0-4.8); Lymphocytes % (A) 5 %; MCHC 33.9 g/dL (31.0-37.0); MCV 94.3 fL (80.0-100.0); Mean Platelet Volume 8.1; Monocytes # (A) 0.7 k/uL (0-1.0); Monocytes % (A) 4 %; Neutrophils # (A) 15.6 k/uL (1.3-7.7); Neutrophils % (A) 87 %; Platelet Count 411 k/uL (150-450); RDW 13.4 % (11.5-15.5); WBC 17.9 k/uL (3.8-10.6)
[2023-08-18 14:36] LABS: Partial Thromboplastin Time 25.4 sec (22.0-30.0); Prothrombin Time 11.1 sec (10.0-12.5)
[2023-08-18 14:48] LABS: African American GFR (CKD) 45 (>60 ml/min/1.73 sqM); Albumin 3.5 g/dL (3.5-5.0); Carbon Dioxide 21 mmol/L (22-30); Non-African American GFR(CKD) 39 (>60 ml/min/1.73 sqM); Total Bilirubin 0.9 mg/dL (0.2-1.3); Total Protein 7.1 g/dL (6.3-8.2)
[2023-08-18 14:52] LABS: ALT 59 U/L (4-49); AST 65 U/L (17-59); Alkaline Phosphatase 202 U/L (38-126); Anion Gap 16 mmol/L; Blood Urea Nitrogen 51 mg/dL (9-20); Calcium 8.7 mg/dL (8.4-10.2); Chloride 100 mmol/L (98-107); Glucose 182 mg/dL (74-99); Magnesium 3.1 mg/dL (1.6-2.3); Sodium 137 mmol/L (137-145)
[2023-08-18 14:59] LABS: NT-Pro-B-Type Natriuretic Pept 176 pg/mL
[2023-08-18 15:11] LABS: Potassium 4.4 mmol/L (3.5-5.1)
[2023-08-18] MEDS ORDERED: ALBUTEROL HFA INHALER INHALATION STA (15:40)
[2023-08-18] MEDS ORDERED: TIOTROPIUM 2.5 MCG INHALER INHALATION STA (15:41)
[2023-08-18] MEDS ORDERED: MORPHINE SULFATE 4 MG/ML SYRINGE IV PRN (17:19)
[2023-08-18] MEDS ORDERED: ONDANSETRON 4 MG/2 ML VIAL IVP PRN (17:19)
[2023-08-18] MEDS ORDERED: PNEUMONIA PROTOCOL UTILIZED 1 EACH MISC PO PRN (17:19)
[2023-08-18] MEDS ORDERED: AZITHROMYCIN 500 MG in SODIUM CHLORIDE 0.9% 250 ML IVPB STA (17:19)
[2023-08-18] MEDS ORDERED: NALOXONE 0.4 MG/ML 1 ML VIAL IV PRN (17:19)
[2023-08-18] MEDS: SODIUM CHLORIDE 0.9% 1,000 ML IV SCH (17:57)
--- NOTE | 2023-08-18 21:55 | P.HPIM ---
History of Present Illness H&P Date: 08/18/23 Patient is a 72-year-old male with a PMH of hypertension and hyperlipidemia who presented to the emergency room with complaints of generalized weakness and cough. Patient reports that he has been feeling ill over the past 1 week with a nonproductive cough, myalgias, and fatigue. Denies experiencing chest discomfort, nausea, vomiting, abdominal pain, diarrhea. Chest x-ray in the emergency room revealed bilateral opacities concerning for pneumonia. EKG revealed sinus rhythm at 86 bpm with Q waves in the inferior leads as reviewed by me. Laboratory evaluation revealed leukocytosis of 17.9, BUN 51, creatinine 1.71, lactic acid 1.6, AST 65, ALT 59, troponin 0.013, and proBNP 176 with coronavirus PCR positive. The patient had an SpO2 of 91% on room air on arrival. ED documentation reviewed and case discussed with ED provider. Review of systems: Pertinent positives and negatives as discussed in HPI, a complete review of systems was performed and all other systems are negative. Physical examination: Vital signs reviewed General: non toxic, no distress, appears at stated age, overweight Derm: no unusual rashes/lesions, warm Head: atraumatic, normocephalic, symmetric Eyes: EOMI, no lid lag, anicteric sclera, pupils equal round reactive to light ENT: Nose and ears atraumatic Neck: No cervical lymphadenopathy, trachea midline, supple Mouth: no lip lesion, mucus membranes moist Cardiovascular: S1S2 reg, no murmur, positive dorsalis pedis pulse bilateral, no edema Lungs: CTA bilateral, no rhonchi, no rales, no accessory muscle use Abdominal: soft, nontender to palpation, no guarding Ext: muscle strength 5 out of 5 in all 4 extremities grossly, no gross muscle atrophy, no contractures, Neuro: CN II-XI grossly intact, no gross focal neuro deficits Psych: Alert, oriented to person and place only, not oriented to time Assessment: COVID-19 pneumonitis with acute hypoxic respiratory failure, rule out bacterial pneumonia Altered mental status, suspect encephalopathy in setting of ongoing infection Kidney injury, acute versus chronic (no baseline available for comparison) Chronic conditions: Hypertension, hyperlipidemia Imaging: Chest x-ray in the emergency room revealed bilateral opacities concerning for pneumonia. EKG revealed sinus rhythm at 86 bpm with Q waves in the inferior leads as reviewed by me. Data Review: Laboratory evaluation revealed leukocytosis of 17.9, BUN 51, creatinine 1.71, lactic acid 1.6, AST 65, ALT 59, troponin 0.013, and proBNP 176 with coronavirus PCR positive. The patient had an SpO2 of 91% on room air on arrival. Plan: Continue with azithromycin and ceftriaxone for now Pulmonary consulted Check pro calcitonin levels Start patient on Decadron 6 mg by mouth daily Follow-up sputum culture and Legionella testing Follow-up blood cultures Monitor BMP Continue with IV fluids 75 mL per hour Continue with home meds once reconciled DVT prophylaxis: Lovenox subcu The patient is admitted with an anticipated greater than 2 midnight stay for evaluation of COVID 19 CODE STATUS: Full Code Discussed with: Patient Anticipated discharge place: Home Past Medical History Past Medical History: COPD, Diabetes Mellitus, Hyperlipidemia, Hypertension, Pneumonia Additional Past Medical History / Comment(s): hx lumbosacral strain History of Any Multi-Drug Resistant Organisms: None Reported Past Surgical History: Hernia Repair Additional Past Surgical History / Comment(s): vasectomy Past Anesthesia/Blood Transfusion Reactions: No Reported Reaction Past Psychological History: No Psychological Hx Reported Smoking Status: Never smoker Past Alcohol Use History: Rare - Past Family History Father Family Medical History: Cancer Sister(s) Family Medical History: Cancer Brother(s) Family Medical History: Myocardial Infarction ([place]) Medications and Allergies Home Medications Medication Instructions Recorded Confirmed Type Ascorbic Acid [Vitamin C] 500 mg PO DAILY 01/09/22 08/18/23 History Fish Oil/Dha/Epa [Fish Oil 1,200 1 cap PO DAILY 01/09/22 08/18/23 History mg Fish Oil] Multivit-Min/Folic/Vit K/Lycop 1 tab PO DAILY 01/09/22 08/18/23 History [Men's Multivitamin Tablet] Aspirin 650 mg PO DAILY PRN 08/18/23 08/18/23 History Cyanocobalamin (Vitamin B-12) 2,500 mcg PO DAILY 08/18/23 08/18/23 History [Vitamin B-12] Dapagliflozin Propanediol [Farxiga] 10 mg PO DAILY 08/18/23 08/18/23 History Losartan/Hydrochlorothiazide 1 tab PO DAILY 08/18/23 08/18/23 History [Losartan-Hctz 100-25 mg Tab] Lovastatin [Mevacor] 20 mg PO DAILY 08/18/23 08/18/23 History Phenyleph/Acetaminophn/Doxylam 1 cap PO Q4H PRN 08/18/23 08/18/23 History [Vicks Dayquil-Nyquil Sinex Cap] Potassium Gluconate 99 mg PO DAILY 08/18/23 08/18/23 History Allergies Allergy/AdvReac Type Severity Reaction Status Date / Time No Known Allergies Allergy Verified 08/18/23 13:15 Physical Exam Vitals: Vital Signs Temp Pulse Resp BP Pulse Ox 08/18/23 21:23 99.5 F 88 104/58 94 L 08/18/23 18:30 87 22 103/43 91 L 08/18/23 18:00 84 20 102/47 88 L 08/18/23 17:30 82 20 105/53 92 L 08/18/23 17:00 82 20 94/47 90 L 08/18/23 16:30 85 22 118/59 91 L 08/18/23 16:23 87 18 118/59 91 L 08/18/23 16:00 86 20 102/86 91 L 08/18/23 15:30 77 20 138/56 90 L 08/18/23 15:00 77 18 136/56 90 L 08/18/23 14:30 82 16 114/64 92 L 08/18/23 14:10 22 08/18/23 14:00 80 18 130/68 91 L 08/18/23 13:51 85 18 116/58 91 L 08/18/23 13:11 98.2 F 92 17 83/48 91 L Intake and Output 08/18/23 08/18/23 08/18/23 06:59 14:59 22:59 Other: Weight 90.718 kg Results CBC & Chem 7: 08/18/23 14:00 08/18/23 14:00 Labs: Abnormal Lab Results - Last 24 Hours (Table) 08/18/23 08/18/23 08/18/23 Range/Units 14:00 14:00 14:00 WBC 17.9 H (3.8-10.6) k/uL Neutrophils # 15.6 H (1.3-7.7) k/uL Lymphocytes # 0.9 L (1.0-4.8) k/uL Carbon Dioxide 21 L (22-30) mmol/L BUN 51 H (9-20) mg/dL Creatinine 1.71 H (0.66-1.25) mg/dL Glucose 182 H (74-99) mg/dL Magnesium 3.1 H (1.6-2.3) mg/dL AST 65 H (17-59) U/L ALT 59 H (4-49) U/L Alkaline Phosphatase 202 H (38-126) U/L SARS-CoV-2 (PCR) Detected A (Not Detectd)
[2023-08-18] MEDS: dexAMETHasone 2 MG TAB PO SCH (22:04)
--- NOTE | 2023-08-19 03:02 | P.CNPUL ---
History of Present Illness Consult date: 08/19/23 Requesting physician: Reginald Barajas Reason for consult: other (COVID-19 pneumonia) Chief complaint: Shortness of breath, weakness, cough History of present illness: I am seeing this patient in consultation today 08/19/2023 in the emergency room, room 2. He is a 72-year-old white male with past medical history significant for diabetes mellitus, hypertension, hyperlipidemia, remote ex-smoker. Denies any history of COPD or asthma. His primary care provider is Dr. Leal. Patient has been experiencing shortness of breath, a nonproductive cough, and increased fatigue for about a week and a half. He denies any sputum production, fevers, chest pain, hemoptysis. Patient did test positive for COVID-19 on arrival. He does state he's had his initial COVID vaccination, but no booster injections. He is currently sitting up in bed, on 4 L/m nasal cannula, in no acute distress. He does not wear oxygen at home. Chest x-ray on arrival demonstrated left perihilar density as well as a right medial lung base opacity which may reflect developing pneumonia. Suspect COVID-19 pneumonia. He has been started on Decadron. CBC shows a WBC count of 17.9, hemoglobin 15.3, hematocrit 45.3, platelets 411. BMP shows sodium 137, potassium 4.4, chloride 100, serum bicarbonate 21, BUN 51, creatinine 1.71, glucose 182. Troponin is not elevated. NT proBNP low. Normal saline infusing at 75 mL per hour. Underlying bacterial infection is not excluded. Patient is empirically covered on a combination of azithromycin and Rocephin. Procalcitonin levels pending. He is afebrile. Vital signs are stable. Review of Systems REVIEW OF SYSTEMS: CONSTITUTIONAL: Denies any recent significant weight loss or weight gain. Admits generalized myalgia and fatigue. EYES: Denies change in vision. EARS, NOSE, MOUTH, THROAT: Denies headaches, denies sore throat. CARDIOVASCULAR: Denies chest pain, palpitations or syncopal episodes. RESPIRATORY: See HPI GASTROINTESTINAL: Denies change in appetite, abdominal pain, nausea and vomiting, or diarrhea GENITOURINARY: Denies hematuria, denies infections. MUSKULOSKELETAL: Denies pain, denies swelling. INTEGUMENTARY: Denies rash, denies eczema. NEUROLOGICAL: Denies recent memory loss, no recent seizure activity. PSYCHIATRIC: Denies anxiety, denies depression. HEMATOLOGIC/LYMPHATIC: Denies anemia, denies enlarged lymph node Past Medical History Past Medical History: COPD, Diabetes Mellitus, Hyperlipidemia, Hypertension, Pneumonia Additional Past Medical History / Comment(s): hx lumbosacral strain History of Any Multi-Drug Resistant Organisms: None Reported Past Surgical History: Hernia Repair Additional Past Surgical History / Comment(s): vasectomy Past Anesthesia/Blood Transfusion Reactions: No Reported Reaction Past Psychological History: No Psychological Hx Reported Smoking Status: Never smoker Past Alcohol Use History: Rare - Past Family History Father Family Medical History: Cancer Sister(s) Family Medical History: Cancer Brother(s) Family Medical History: Myocardial Infarction (ND) Medications and Allergies Home Medications Medication Instructions Recorded Confirmed Type Ascorbic Acid [Vitamin C] 500 mg PO DAILY 01/09/22 08/18/23 History Fish Oil/Dha/Epa [Fish Oil 1,200 1 cap PO DAILY 01/09/22 08/18/23 History mg Fish Oil] Multivit-Min/Folic/Vit K/Lycop 1 tab PO DAILY 01/09/22 08/18/23 History [Men's Multivitamin Tablet] Aspirin 650 mg PO DAILY PRN 08/18/23 08/18/23 History Cyanocobalamin (Vitamin B-12) 2,500 mcg PO DAILY 08/18/23 08/18/23 History [Vitamin B-12] Dapagliflozin Propanediol [Farxiga] 10 mg PO DAILY 08/18/23 08/18/23 History Losartan/Hydrochlorothiazide 1 tab PO DAILY 08/18/23 08/18/23 History [Losartan-Hctz 100-25 mg Tab] Lovastatin [Mevacor] 20 mg PO DAILY 08/18/23 08/18/23 History Phenyleph/Acetaminophn/Doxylam 1 cap PO Q4H PRN 08/18/23 08/18/23 History [Vicks Dayquil-Nyquil Sinex Cap] Potassium Gluconate 99 mg PO DAILY 08/18/23 08/18/23 History Allergies Allergy/AdvReac Type Severity Reaction Status Date / Time No Known Allergies Allergy Verified 08/18/23 13:15 Physical Exam Vitals: Vital Signs Temp Pulse Resp BP Pulse Ox 08/19/23 02:19 98.2 F 70 20 117/65 92 L 08/18/23 21:23 99.5 F 88 104/58 94 L 08/18/23 18:30 87 22 103/43 91 L 08/18/23 18:00 84 20 102/47 88 L 08/18/23 17:30 82 20 105/53 92 L 08/18/23 17:00 82 20 94/47 90 L 08/18/23 16:30 85 22 118/59 91 L 08/18/23 16:23 87 18 118/59 91 L 08/18/23 16:00 86 20 102/86 91 L 08/18/23 15:30 77 20 138/56 90 L 08/18/23 15:00 77 18 136/56 90 L 08/18/23 14:30 82 16 114/64 92 L 08/18/23 14:10 22 08/18/23 14:00 80 18 130/68 91 L 08/18/23 13:51 85 18 116/58 91 L 08/18/23 13:11 98.2 F 92 17 83/48 91 L Intake and Output 08/18/23 08/18/23 08/19/23 14:59 22:59 06:59 Other: Weight 90.718 kg GENERAL EXAM: Alert, 72-year-old white male, comfortable in no apparent distress. HEAD: Normocephalic and atraumatic EYES: Normal reaction of pupils, equal size. NOSE: Clear with pink turbinates. THROAT: No erythema or exudates. NECK: No masses, no JVD. CHEST: No chest wall deformity. LUNGS: Equal air entry with diminished lung sounds throughout. no crackles, wheeze, rhonchi or dullness. On 4 L/m nasal cannula. No conversational dyspnea or accessory muscle use.. CVS: S1 and S2 normal with no audible murmur, regular rhythm. No extra heart sounds ABDOMEN: No hepatosplenomegaly, active bowel sounds, no guarding or rigidity. SPINE: No scoliosis or deformity SKIN: No rashes CENTRAL NERVOUS SYSTEM: No focal deficits, tone is normal in all 4 extremities. EXTREMITIES: There is no peripheral edema, clubbing, or cyanosis. Peripheral pulses are intact. Results - Laboratory Findings CBC and BMP: 08/18/23 14:00 08/18/23 14:00 PT/INR, D-dimer PT 11.1 sec (10.0-12.5) 08/18/23 14:00 INR 1.0 (<1.2) 08/18/23 14:00 Abnormal lab findings: Abnormal Labs 08/18/23 08/18/23 08/18/23 14:00 14:00 14:00 WBC 17.9 H Neutrophils # 15.6 H Lymphocytes # 0.9 L Carbon Dioxide 21 L BUN 51 H Creatinine 1.71 H Glucose 182 H Magnesium 3.1 H AST 65 H ALT 59 H Alkaline Phosphatase 202 H SARS-CoV-2 (PCR) Detected A - Diagnostic Findings Chest x-ray: image reviewed Assessment and Plan Assessment: Acute hypoxemic respiratory failure, likely secondary to acute COVID-19 pneumonia, underlying superimposed bacterial infection is not excluded. Chest x-ray demonstrates multifocal infiltrates particularly in the left perihilar region, as well as, at the right medial lung base. He did test positive for COVID-19 on arrival. Procalcitonin level pending. Leukocytosis No baseline kidney function, consider acute kidney injury Diabetes mellitus, type 2 Hypertension Hyperlipidemia Remote ex-smoker Plan: Patient's medications, labs, chest x-ray reviewed. Suspect COVID-19 pneumonia. Patient is requiring oxygen at 4 L/m nasal cannula. Continue supportive treatment. Patient is started on IV Decadron. Also, receiving Lovenox for DVT prophylaxis. Patient is empirically covered on azithromycin and Rocephin for now. Check procalcitonin level. Urine Legionella antigen pending. IV m aintenance fluids at 75 ml/hr. We will continue to follow, and further recommendations are forthcoming. I have personally seen and examined the patient, performed the documentation and the assessment and plan as written. Number of minutes spent on the visit:20 Time with Patient: Greater than 30
[2023-08-19] MEDS: SODIUM CHLORIDE 0.9% 1,000 ML IV SCH ×2 (05:53→21:19)
[2023-08-19 08:43] LABS: HCT 41.7 % (39.6-50.0); MCH 31.3 pg (27.0-32.0); MCHC 33.6 g/dL (32.0-37.0); MCV 93.1 FL (80.0-97.0); NRBC Per 100 WBC 0 X 10*3/uL (0.00-0.01); Platelet Count 416 X 10*3/uL (140-440); RBC 4.48 X 10*6/uL (4.40-5.60); RDW 13.5 % (11.5-14.5); WBC 16.62 X 10*3/uL (4.50-10.00)
[2023-08-19] MEDS: ENOXAPARIN 40 MG/0.4 ML SYRINGE SQ SCH (09:49)
[2023-08-19] MEDS: dexAMETHasone 2 MG TAB PO SCH (09:49)
--- NOTE | 2023-08-19 09:49 | XR ---
EXAMINATION TYPE: XR chest 1V portable DATE OF EXAM: 08/19/2023 Comparison: 08/18/2023 Clinical History: 72-year-old male follow-up pneumonia Findings: Heart upper limits of normal in size. Aorta and pulmonary vasculature within normal limits. There is mild interstitial density. There is a 1.6 cm nodule at the periphery of the right mid to lower lung. Patchy opacity throughout the left mid to lower lung. No pleural effusion. Impression: 1. Continued patchy interstitial infiltrate left mid and lower lung. 2. 1.6 cm nodule periphery of the right lower lung, suspected nipple shadow. Reassess said short inte rval follow-up utilizing nipple markers.
[2023-08-19 11:18] LABS: Basophils # (A) 0.13 X 10*3/uL (0.00-0.10); Basophils % (A) 0.8 %; Eosinophils # (A) 0.01 X 10*3/uL (0.04-0.35); Eosinophils % (A) 0.1 %; Lymphocytes # (A) 0.82 X 10*3/uL (0.90-5.00); Lymphocytes % (A) 4.9 %; Monocytes # (A) 0.24 X 10*3/uL (0.20-1.00); Monocytes % (A) 1.4 %; Neutrophils # (A) 14.64 X 10*3/uL (1.80-7.70); Neutrophils % (A) 88.1 %; RBC Morphology Normal (Normal)
[2023-08-19 11:27] LABS: ALT 51 U/L (10-49); AST 52 U/L (14-35); Albumin 3.4 g/dL (3.8-4.9); Albumin/Globulin Ratio 1.03 Ratio (1.60-3.17); Alkaline Phosphatase 160 U/L (41-126); BUN/Creat Ratio 30.29 Ratio (12.00-20.00); Blood Urea Nitrogen 42.4 mg/dL (9.0-27.0); Calcium 8.6 mg/dL (8.7-10.3); Carbon Dioxide 18.5 mmol/L (21.6-31.8); Chloride 101 mmol/L (96-109); Globulin 3.3 g/dL (1.6-3.3); Glucose 170 mg/dL (70-110); Magnesium 2.9 mg/dL (1.5-2.4); Phosphorus 5.2 mg/dL (2.4-5.1); Potassium 4.9 mmol/L (3.5-5.5); Sodium 137 mmol/L (135-145); Total Bilirubin 0.4 mg/dL (0.3-1.2); Total Protein 6.7 g/dL (6.2-8.2)
[2023-08-19] MEDS: AZITHROMYCIN 500 MG TAB PO SCH (13:14)
--- NOTE | 2023-08-19 15:35 | P.PN ---
Subjective Progress Note Date: 08/19/23 Hospital Course: 72-year-old male with a PMH of hypertension and hyperlipidemia who presented to the emergency room with complaints of generalized weakness and cough. Chest x- ray in the emergency room revealed bilateral opacities concerning for pneumonia. EKG revealed sinus rhythm at 86 bpm with Q waves in the inferior leads. Laboratory evaluation revealed leukocytosis of 17.9, BUN 51, creatinine 1.71, lactic acid 1.6, AST 65, ALT 59, troponin 0.013, and proBNP 176 with coronavirus PCR positive. The patient had an SpO2 of 91% on room air on arrival. Currently requiring 5 L of oxygen by nasal cannula. Pulmonology also consulted. On IV antibiotics and oral Decadron. Subjective: Patient seen and examined at bedside. No acute events overnight. Still having significant shortness of breath and cough. Pertinent positives and negatives as discussed above, a complete review of systems was performed and all other systems are negative. Vitals Signs Reviewed. General: nontoxic, no distress, appears at stated age Derm: warm, dry Head: atraumatic, normocephalic, symmetric Eyes: EOMI, no lid lag, anicteric sclera Mouth: no lip lesion, mucus membranes moist Cardiovascular: S1S2 reg, no murmur Lungs: Bilateral rales , no accessory muscle use, supplemental oxygen Abdominal: soft, nontender to palpation, no guarding, no appreciable organomegaly Ext: no gross muscle atrophy, no edema, no contractures Neuro: CN II-XI grossly intact, no focal neuro deficits Psych: Alert, oriented, appropriate affect Data Reviewed Today: Pertinent Labs: WBC 16.62, potassium 4.9, creatinine 1.4, procal 0.31 Imaging: Chest x-ray and apparently interpreted from this morning, shows bilateral interstitial opacities Assessment and Plan: Active: Acute COVID-19 pneumonia Acute hypoxic respiratory failure Sepsis secondary to superimposed community-acquired pneumonia Acute kidney injury History of hypertension Dyslipidemia -Pulmonology note reviewed, continue azithromycin 500 mg daily oral, ceftriaxone 2 g IV every 24 hours, Symbicort twice a day -Continue to wean oxygen -On Decadron 6 mg daily -Renal function improving -Continue normal saline at 75 mL an hour -Hold antihypertensives -Continue statin DVT ppx: Lovenox Code status: Full code Anticipated discharge place: Pending clinical course Anticipated discharge time: Pending clinical course Objective - Vital Signs Vital signs: Vital Signs Temp 97.3 F L 08/19/23 13:45 Pulse 67 08/19/23 13:45 Resp 20 08/19/23 13:45 BP 135/75 08/19/23 13:45 Pulse Ox 93 L 08/19/23 13:45 FiO2 Intake & Output 08/18/23 08/19/23 08/19/23 18:59 06:59 18:59 Weight 90.718 kg 90.718 kg Other: Voiding Method Toilet Urinal # Voids 3 # Bowel Movements 1 - Labs CBC & Chem 7: 08/19/23 05:28 08/19/23 05:28 Labs: Abnormal Lab Results - Last 24 Hours (Table) 08/18/23 08/19/23 08/19/23 Range/Units 23:43 05:28 05:28 WBC 16.62 H (4.50-10.00) X 10*3/uL Immature Gran # 0.78 H (0.00-0.04) X 10*3/uL Neutrophils # 14.64 H (1.80-7.70) X 10*3/uL Lymphocytes # 0.82 L (0.90-5.00) X 10*3/uL Eosinophils # 0.01 L (0.04-0.35) X 10*3/uL Basophils # 0.13 H (0.00-0.10) X 10*3/uL Carbon Dioxide 18.5 L (21.6-31.8) mmol/L Anion Gap 17.50 H (4.00-12.00) mmol/L BUN 42.4 H (9.0-27.0) mg/dL Est GFR (CKD-EPI) 53 L (>=60) BUN/Creatinine Ratio 30.29 H (12.00-20.00) Ratio Glucose 170 H (70-110) mg/dL Calcium 8.6 L (8.7-10.3) mg/dL Phosphorus 5.2 H (2.4-5.1) mg/dL Magnesium 2.9 H (1.5-2.4) mg/dL AST 52 H (14-35) U/L ALT 51 H (10-49) U/L Alkaline Phosphatase 160 H (41-126) U/L Albumin 3.4 L (3.8-4.9) g/dL Albumin/Globulin Ratio 1.03 L (1.60-3.17) Ratio Procalcitonin 0.31 H (0.02-0.09) ng/mL
[2023-08-19] MEDS: SYMBICORT 160-4.5 MCG INHALER INHALATION SCH (18:45)
[2023-08-20 08:25] LABS: HCT 40.6 % (39.6-50.0); HGB 13.4 g/dL (13.0-17.0); MCH 30.9 pg (27.0-32.0); MCV 93.5 FL (80.0-97.0); Mean Platelet Volume 9.7 FL (9.5-12.2); NRBC Per 100 WBC 0 X 10*3/uL (0.00-0.01); Platelet Count 447 X 10*3/uL (140-440); RBC 4.34 X 10*6/uL (4.40-5.60); RDW 13.4 % (11.5-14.5); WBC 18.72 X 10*3/uL (4.50-10.00)
[2023-08-20] MEDS: SYMBICORT 160-4.5 MCG INHALER INHALATION SCH ×2 (08:42→20:47)
[2023-08-20] MEDS: ATORVASTATIN 10 MG TAB PO SCH (08:46)
[2023-08-20] MEDS: dexAMETHasone 2 MG TAB PO SCH (08:46)
[2023-08-20] MEDS: AZITHROMYCIN 500 MG TAB PO SCH (08:46)
[2023-08-20] MEDS: ENOXAPARIN 40 MG/0.4 ML SYRINGE SQ SCH (08:46)
[2023-08-20 08:56] LABS: ALT 54 U/L (10-49); AST 51 U/L (14-35); Albumin 3.1 g/dL (3.8-4.9); Albumin/Globulin Ratio 0.97 Ratio (1.60-3.17); Alkaline Phosphatase 123 U/L (41-126); BUN/Creat Ratio 36.85 Ratio (12.00-20.00); Blood Urea Nitrogen 47.9 mg/dL (9.0-27.0); Calcium 8.7 mg/dL (8.7-10.3); Chloride 108 mmol/L (96-109); Globulin 3.2 g/dL (1.6-3.3); Glucose 193 mg/dL (70-110); Sodium 140 mmol/L (135-145); Total Bilirubin 0.2 mg/dL (0.3-1.2); Total Protein 6.3 g/dL (6.2-8.2)
[2023-08-20 09:06] LABS: Basophils # (M) 0 X 10*3/uL (0.00-0.10); Eosinophils # (M) 0 X 10*3/uL (0.04-0.35); Lymphocytes # (M) 0.75 X 10*3/uL (0.90-5.00); Monocytes # (M) 0.75 X 10*3/uL (0.20-1.00); Neutrophils # (M) 17.22 X 10*3/uL (1.80-7.70); Neutrophils % (M) 92 %; Toxic Granulation 2+
--- NOTE | 2023-08-20 11:04 | P.PN ---
Subjective Progress Note Date: 08/20/23 Hospital Course: 72-year-old male with a PMH of hypertension and hyperlipidemia who presented to the emergency room with complaints of generalized weakness and cough. Chest x- ray in the emergency room revealed bilateral opacities concerning for pneumonia. EKG revealed sinus rhythm at 86 bpm with Q waves in the inferior leads. Laboratory evaluation revealed leukocytosis of 17.9, BUN 51, creatinine 1.71, lactic acid 1.6, AST 65, ALT 59, troponin 0.013, and proBNP 176 with coronavirus PCR positive. The patient had an SpO2 of 91% on room air on arrival. Currently requiring 5 L of oxygen by nasal cannula. Pulmonology also consulted. On IV antibiotics and oral Decadron. Still requiring high amounts of oxygen. Subjective: Patient seen and examined at bedside. No acute events overnight. Still requiring high amounts of oxygen. He has been slightly more confused compared to yesterday Pertinent positives and negatives as discussed above, a complete review of systems was performed and all other systems are negative. Vitals Signs Reviewed. General: nontoxic, no distress, appears at stated age Derm: warm, dry Head: atraumatic, normocephalic, symmetric Eyes: EOMI, no lid lag, anicteric sclera Mouth: no lip lesion, mucus membranes moist Cardiovascular: S1S2 reg, no murmur Lungs: Bilateral rales , no accessory muscle use, supplemental oxygen Abdominal: soft, nontender to palpation, no guarding, no appreciable organomegaly Ext: no gross muscle atrophy, no edema, no contractures Neuro: CN II-XI grossly intact, no focal neuro deficits Psych: Alert, orientedx1, appropriate affect Data Reviewed Today: Pertinent Labs: WBC 18.72, creatinine 1.3 Imaging: No new imaging Assessment and Plan: Patient is critically ill, prognosis guarded, needs close monitoring. Active: Acute COVID-19 pneumonia Acute hypoxic respiratory failure Sepsis secondary to superimposed community-acquired pneumonia Acute encephalopathy, likely delirium Acute kidney injury, resolving History of hypertension Dyslipidemia -Pulmonology following, continue azithromycin 500 mg daily oral, ceftriaxone 2 g IV every 24 hours, Symbicort twice a day -Cultures pending -Continue to wean oxygen -On Decadron 6 mg daily -Renal function improving -Continue normal saline at 75 mL an hour -Hold antihypertensives -Delirium precautions -Continue statin DVT ppx: Lovenox Code status: Full code Anticipated discharge place: Pending clinical course Anticipated discharge time: Pending clinical course Objective - Vital Signs Vital signs: Vital Signs Temp 97.4 F L 08/20/23 07:38 Pulse 66 08/20/23 07:38 Resp 15 08/20/23 07:38 BP 144/77 08/20/23 07:38 Pulse Ox 92 L 08/20/23 08:42 FiO2 Intake & Output 08/19/23 08/20/23 08/20/23 18:59 06:59 18:59 Intake Total 120 222 Balance 120 222 Weight 90.718 kg Intake: Oral 120 222 Other: Voiding Method Toilet Urinal # Voids 3 1 # Bowel Movements 1 - Labs CBC & Chem 7: 08/20/23 05:45 08/20/23 05:45 Labs: Abnormal Lab Results - Last 24 Hours (Table) 08/19/23 08/19/23 08/20/23 Range/Units 05:28 05:28 05:45 WBC 18.72 H (4.50-10.00) X 10*3/uL RBC 4.34 L (4.40-5.60) X 10*6/uL Plt Count 447 H (140-440) X 10*3/uL Immature Gran # 0.78 H (0.00-0.04) X 10*3/uL Neutrophils # 14.64 H (1.80-7.70) X 10*3/uL Lymphocytes # 0.82 L (0.90-5.00) X 10*3/uL Lymphocytes # (Manual) 0.75 L (0.90-5.00) X 10*3/uL Eosinophils # 0.01 L (0.04-0.35) X 10*3/uL Eosinophils # (Manual) 0 L (0.04-0.35) X 10*3/uL Basophils # 0.13 H (0.00-0.10) X 10*3/uL Toxic Granulation 2+ A Carbon Dioxide 18.5 L (21.6-31.8) mmol/L Anion Gap 17.50 H (4.00-12.00) mmol/L BUN 42.4 H (9.0-27.0) mg/dL Est GFR (CKD-EPI) 53 L (>=60) BUN/Creatinine Ratio 30.29 H (12.00-20.00) Ratio Glucose 170 H (70-110) mg/dL Calcium 8.6 L (8.7-10.3) mg/dL Phosphorus 5.2 H (2.4-5.1) mg/dL Magnesium 2.9 H (1.5-2.4) mg/dL Total Bilirubin (0.3-1.2) mg/dL AST 52 H (14-35) U/L ALT 51 H (10-49) U/L Alkaline Phosphatase 160 H (41-126) U/L Albumin 3.4 L (3.8-4.9) g/dL Albumin/Globulin Ratio 1.03 L (1.60-3.17) Ratio 08/20/ Range/Units 05:45 WBC (4.50-10.00) X 10*3/uL RBC (4.40-5.60) X 10*6/uL Plt Count (140-440) X 10*3/uL Immature Gran # (0.00-0.04) X 10*3/uL Neutrophils # (1.80-7.70) X 10*3/uL Lymphocytes # (0.90-5.00) X 10*3/uL Lymphocytes # (Manual) (0.90-5.00) X 10*3/uL Eosinophils # (0.04-0.35) X 10*3/uL Eosinophils # (Manual) (0.04-0.35) X 10*3/uL Basophils # (0.00-0.10) X 10*3/uL Toxic Granulation Carbon Dioxide 18.0 L (21.6-31.8) mmol/L Anion Gap 14.00 H (4.00-12.00) mmol/L BUN 47.9 H (9.0-27.0) mg/dL Est GFR (CKD-EPI) 58 L (>=60) BUN/Creatinine Ratio 36.85 H (12.00-20.00) Ratio Glucose 193 H (70-110) mg/dL Calcium (8.7-10.3) mg/dL Phosphorus (2.4-5.1) mg/dL Magnesium (1.5-2.4) mg/dL Total Bilirubin 0.2 L (0.3-1.2) mg/dL AST 51 H (14-35) U/L ALT 54 H (10-49) U/L Alkaline Phosphatase (41-126) U/L Albumin 3.1 L (3.8-4.9) g/dL Albumin/Globulin Ratio 0.97 L (1.60-3.17) Ratio Microbiology - Last 24 Hours (Table) 08/18/23 17:15 Blood Culture - Preliminary Blood 08/18/23 17:30 Blood Culture - Preliminary Blood
--- NOTE | 2023-08-20 13:37 | P.PN ---
Subjective Progress Note Date: 08/20/23 I am seeing this patient in consultation today 08/19/2023 in the emergency room, room 2. He is a 72-year-old white male with past medical history significant for diabetes mellitus, hypertension, hyperlipidemia, remote ex-smoker. Denies any history of COPD or asthma. His primary care provider is Dr. Leal. Patient has been experiencing shortness of breath, a nonproductive cough, and increased fatigue for about a week and a half. He denies any sputum production, fevers, chest pain, hemoptysis. Patient did test positive for COVID-19 on arrival. He does state he's had his initial COVID vaccination, but no booster injections. He is currently sitting up in bed, on 4 L/m nasal cannula, in no acu te distress. He does not wear oxygen at home. Chest x-ray on arrival demonstrated left perihilar density as well as a right medial lung base opacity which may reflect developing pneumonia. Suspect COVID-19 pneumonia. He has been started on Decadron. CBC shows a WBC count of 17.9, hemoglobin 15.3, hematocrit 45.3, platelets 411. BMP shows sodium 137, potassium 4.4, chloride 100, serum bicarbonate 21, BUN 51, creatinine 1.71, glucose 182. Troponin is not elevated. NT proBNP low. Normal saline infusing at 75 mL per hour. Underlying bacterial infection is not excluded. Patient is empirically covered on a combination of azithromycin and Rocephin. Procalcitonin levels pending. He is afebrile. Vital signs are stable. The patient is seen today 08/20/2023 in follow-up on the regular medical floor. He is currently resting in bed. Awake and alert in no acute distress. He is requiring 6 L high flow nasal cannula to maintain O2 saturations in the 90s. He has normal saline at 75 ML's per hour. Chest x-ray showing some right middle lobe and left lower lobe infiltrate. Pro-calcitonin was 0.31. Legionella screen was negative. Blood cultures reveal no growth to date. White count 18.7. Hemoglobin 13.4. Sodium 140. Potassium 5.0. Bicarb 18. BUN 48. Creatinine 1.3. Glucose 193. AST 51. ALT 54. He is continued on azithromycin and Rocephin. Continued on Symbicort, Lovenox, Decadron. Objective - Vital Signs Vital signs: Vital Signs Temp 97.4 F L 08/20/23 07:38 Pulse 66 08/20/23 07:38 Resp 15 08/20/23 07:38 BP 144/77 08/20/23 07:38 Pulse Ox 92 L 08/20/23 08:42 FiO2 Intake & Output 08/19/23 08/20/23 08/20/23 18:59 06:59 18:59 Intake Total 120 222 Balance 120 222 Weight 90.718 kg Intake: Oral 120 222 Other: Voiding Method Toilet Toilet Urinal Urinal # Voids 3 1 # Bowel Movements 1 - Exam GENERAL EXAM: Alert, pleasant 72-year-old male, on 6 L nasal cannula, comfortable in no apparent distress. HEAD: Normocephalic and atraumatic EYES: Normal reaction of pupils, equal size. NOSE: Clear with pink turbinates. THROAT: No erythema or exudates. NECK: No masses, no JVD. CHEST: No chest wall deformity. LUNGS: Equal air entry with diminished lung sounds throughout. no crackles, wheeze, rhonchi or dullness. CVS: S1 and S2 normal with no audible murmur, regular rhythm. No extra heart sounds ABDOMEN: No hepatosplenomegaly, active bowel sounds, no guarding or rigidity. SPINE: No scoliosis or deformity SKIN: No rashes CENTRAL NERVOUS SYSTEM: No focal deficits, tone is normal in all 4 extremities. EXTREMITIES: There is no peripheral edema, clubbing, or cyanosis. Peripheral pulses are intact. - Labs CBC & Chem 7: 08/20/23 05:45 08/20/23 05:45 Labs: Abnormal Lab Results - Last 24 Hours (Table) 08/20/23 08/20/23 Range/Units 05:45 05:45 WBC 18.72 H (4.50-10.00) X 10*3/uL RBC 4.34 L (4.40-5.60) X 10*6/uL Plt Count 447 H (140-440) X 10*3/uL Lymphocytes # (Manual) 0.75 L (0.90-5.00) X 10*3/uL Eosinophils # (Manual) 0 L (0.04-0.35) X 10*3/uL Toxic Granulation 2+ A Carbon Dioxide 18.0 L (21.6-31.8) mmol/L Anion Gap 14.00 H (4.00-12.00) mmol/L BUN 47.9 H (9.0-27.0) mg/dL Est GFR (CKD-EPI) 58 L (>=60) BUN/Creatinine Ratio 36.85 H (12.00-20.00) Ratio Glucose 193 H (70-110) mg/dL Total Bilirubin 0.2 L (0.3-1.2) mg/dL AST 51 H (14-35) U/L ALT 54 H (10-49) U/L Albumin 3.1 L (3.8-4.9) g/dL Albumin/Globulin Ratio 0.97 L (1.60-3.17) Ratio Microbiology - Last 24 Hours (Table) 08/18/23 17:15 Blood Culture - Preliminary Blood 08/18/23 17:30 Blood Culture - Preliminary Blood Assessment and Plan Assessment: Acute hypoxemic respiratory failure, likely secondary to acute COVID-19 pneumonia, underlying superimposed bacterial infection is not excluded. Chest x-ray demonstrates multifocal infiltrates particularly in the left perihilar region, as well as, at the right medial lung base. He did test positive for CO VID-19 on arrival. Procalcitonin level 0.31. Leukocytosis secondary to above No baseline kidney function, consider acute kidney injury Diabetes mellitus, type 2 Hypertension Hyperlipidemia Remote ex-smoker Plan: The patient was seen and evaluated Chest x-ray, labs and medications reviewed Currently on 6 L high flow nasal cannula Continue Symbicort, add albuterol Continue Decadron and Lovenox Continue antibiotics Titrate down the FiO2 as tolerated Increase his activity as tolerated This patient was seen independently by the pulmonary nurse practitioner I have personally seen and examined the patient, performed the documentation and the assessment and plan as written. Number of minutes spent on the visit: 22.
[2023-08-20] MEDS: SODIUM CHLORIDE 0.9% 1,000 ML IV SCH ×2 (15:30→23:19)
[2023-08-21] MEDS ORDERED: QUEtiapine 50 MG TAB PO STA (00:21)
--- NOTE | 2023-08-21 08:09 | P.PN ---
Subjective Progress Note Date: 08/21/23 I am seeing this patient in consultation today 08/19/2023 in the emergency room, room 2. He is a 72-year-old white male with past medical history significant for diabetes mellitus, hypertension, hyperlipidemia, remote ex-smoker. Denies any history of COPD or asthma. His primary care provider is Dr. Leal. Patient has been experiencing shortness of breath, a nonproductive cough, and increased fatigue for about a week and a half. He denies any sputum production, fevers, chest pain, hemoptysis. Patient did test positive for COVID-19 on arrival. He does state he's had his initial COVID vaccination, but no booster injections. He is currently sitting up in bed, on 4 L/m nasal cannula, in no acu te distress. He does not wear oxygen at home. Chest x-ray on arrival demonstrated left perihilar density as well as a right medial lung base opacity which may reflect developing pneumonia. Suspect COVID-19 pneumonia. He has been started on Decadron. CBC shows a WBC count of 17.9, hemoglobin 15.3, hematocrit 45.3, platelets 411. BMP shows sodium 137, potassium 4.4, chloride 100, serum bicarbonate 21, BUN 51, creatinine 1.71, glucose 182. Troponin is not elevated. NT proBNP low. Normal saline infusing at 75 mL per hour. Underlying bacterial infection is not excluded. Patient is empirically covered on a combination of azithromycin and Rocephin. Procalcitonin levels pending. He is afebrile. Vital signs are stable. The patient is seen today 08/20/2023 in follow-up on the regular medical floor. He is currently resting in bed. Awake and alert in no acute distress. He is requiring 6 L high flow nasal cannula to maintain O2 saturations in the 90s. He has normal saline at 75 ML's per hour. Chest x-ray showing some right middle lobe and left lower lobe infiltrate. Pro-calcitonin was 0.31. Legionella screen was negative. Blood cultures reveal no growth to date. White count 18.7. Hemoglobin 13.4. Sodium 140. Potassium 5.0. Bicarb 18. BUN 48. Creatinine 1.3. Glucose 193. AST 51. ALT 54. He is continued on azithromycin and Rocephin. Continued on Symbicort, Lovenox, Decadron. The patient is seen today 08/21/2023 in follow-up on the regular medical floor. He is currently resting comfortably in bed. Awake and alert in no acute distress. Somewhat agitated this morning. He is maintaining O2 saturations in the 90s on 6 L high flow nasal cannula. He is continued on Symbicort and albuterol inhalations. He remains on ceftriaxone, completed azithromycin. Continue on Decadron. Lovenox for DVT prophylaxis. We'll cultures revealed no growth. Today's labs are pending. Objective - Vital Signs Vital signs: Vital Signs Temp 97.6 F 08/21/23 07:11 Pulse 58 L 08/21/23 07:11 Resp 20 08/21/23 07:11 BP 103/51 08/21/23 07:11 Pulse Ox 94 L 08/21/23 07:11 FiO2 Intake & Output 08/20/23 08/21/23 08/21/23 18:59 06:59 18:59 Intake Total 322 120 Balance 322 120 Intake: Oral 322 120 Other: Voiding Method Toilet Toilet Urinal Urinal - Exam GENERAL EXAM: Alert, 72-year-old male, on 6 L nasal cannula, in no apparent distress. HEAD: Normocephalic and atraumatic EYES: Normal reaction of pupils, equal size. NOSE: Clear with pink turbinates. THROAT: No erythema or exudates. NECK: No masses, no JVD. CHEST: No chest wall deformity. LUNGS: Equal air entry with diminished lung sounds throughout. Bilateral scattered rhonchi. CVS: S1 and S2 normal with no audible murmur, regular rhythm. No extra heart sounds ABDOMEN: No hepatosplenomegaly, active bowel sounds, no guarding or rigidity. SPINE: No scoliosis or deformity SKIN: No rashes CENTRAL NERVOUS SYSTEM: No focal deficits, tone is normal in all 4 extremities. EXTREMITIES: There is no peripheral edema, clubbing, or cyanosis. Peripheral pulses are intact. - Labs CBC & Chem 7: 08/20/23 05:45 08/20/23 05:45 Labs: Abnormal Lab Results - Last 24 Hours (Table) 08/20/23 08/20/23 Range/Units 05:45 05:45 WBC 18.72 H (4.50-10.00) X 10*3/uL RBC 4.34 L (4.40-5.60) X 10*6/uL Plt Count 447 H (140-440) X 10*3/uL Lymphocytes # (Manual) 0.75 L (0.90-5.00) X 10*3/uL Eosinophils # (Manual) 0 L (0.04-0.35) X 10*3/uL Toxic Granulation 2+ A Carbon Dioxide 18.0 L (21.6-31.8) mmol/L Anion Gap 14.00 H (4.00-12.00) mmol/L BUN 47.9 H (9.0-27.0) mg/dL Est GFR (CKD-EPI) 58 L (>=60) BUN/Creatinine Ratio 36.85 H (12.00-20.00) Ratio Glucose 193 H (70-110) mg/dL Total Bilirubin 0.2 L (0.3-1.2) mg/dL AST 51 H (14-35) U/L ALT 54 H (10-49) U/L Albumin 3.1 L (3.8-4.9) g/dL Albumin/Globulin Ratio 0.97 L (1.60-3.17) Ratio Microbiology - Last 24 Hours (Table) 08/18/23 17:15 Blood Culture - Preliminary Blood 08/18/23 17:30 Blood Culture - Preliminary Blood Assessment and Plan Assessment: Acute hypoxemic respiratory failure, likely secondary to acute COVID-19 pneumonia, underlying superimposed bacterial infection is not excluded. Chest x-ray demonstrates multifocal infiltrates particularly in the left perihilar region, as well as, at the right medial lung base. He did test positive for COVID-19 on arrival. Procalcitonin level 0.31. He has been treated with ceftriaxone and azithromycin. Leukocytosis secondary to above No baseline kidney function, consider acute kidney injury, improving Diabetes mellitus, type 2 Hypertension Hyperlipidemia Remote ex-smoker Plan: The patient was seen and evaluated Medications reviewed Continue the current treatment plan Follow-up chest x-ray in the a.m. Titrate down the FiO2 as tolerated Increase his activity as tolerated This patient was seen independently by the pulmonary nurse practitioner I have personally seen and examined the patient, performed the documentation and the assessment and plan as written. Number of minutes spent on the visit: 23.
[2023-08-21] MEDS: ENOXAPARIN 40 MG/0.4 ML SYRINGE SQ SCH (08:28)
[2023-08-21] MEDS: dexAMETHasone 2 MG TAB PO SCH (08:28)
[2023-08-21] MEDS: ATORVASTATIN 10 MG TAB PO SCH (08:29)
[2023-08-21 08:54] LABS: ALT 57 U/L (4-49); AST 50 U/L (17-59); African American GFR (CKD) 73 (>60 ml/min/1.73 sqM); Albumin 2.9 g/dL (3.5-5.0); Albumin/Globulin Ratio 0.9; Alkaline Phosphatase 95 U/L (38-126); Anion Gap 12 mmol/L; Blood Urea Nitrogen 45 mg/dL (9-20); Calcium 8.4 mg/dL (8.4-10.2); Carbon Dioxide 16 mmol/L (22-30); Chloride 108 mmol/L (98-107); Globulin 3.1 g/dL; Glucose 143 mg/dL (74-99); Non-African American GFR(CKD) 63 (>60 ml/min/1.73 sqM); Sodium 136 mmol/L (137-145); Total Bilirubin 0.4 mg/dL (0.2-1.3)
[2023-08-21 08:59] LABS: Basophils % (A) 0 %; Eosinophils % (A) 0 %; HCT 41.5 % (39.0-53.0); HGB 13.9 gm/dL (13.0-17.5); Lymphocytes # (A) 0.9 k/uL (1.0-4.8); Lymphocytes % (A) 7 %; MCH 32.1 pg (25.0-35.0); MCHC 33.6 g/dL (31.0-37.0); MCV 95.6 fL (80.0-100.0); Mean Platelet Volume 8.4; Monocytes # (A) 0.8 k/uL (0-1.0); Monocytes % (A) 7 %; Neutrophils # (A) 10.3 k/uL (1.3-7.7); Neutrophils % (A) 84 %; Platelet Count 411 k/uL (150-450); RBC 4.34 m/uL (4.30-5.90); RDW 12.9 % (11.5-15.5); WBC 12.2 k/uL (3.8-10.6)
[2023-08-21] MEDS: ALBUTEROL HFA INHALER INHALATION PRN (09:37)
[2023-08-21] MEDS: SYMBICORT 160-4.5 MCG INHALER INHALATION SCH ×2 (09:37→20:34)
--- NOTE | 2023-08-21 11:02 | P.PN ---
Subjective Progress Note Date: 08/21/23 Hospital Course: 72-year-old male with a PMH of hypertension and hyperlipidemia who presented to the emergency room with complaints of generalized weakness and cough. Chest x- ray in the emergency room revealed bilateral opacities concerning for pneumonia. EKG revealed sinus rhythm at 86 bpm with Q waves in the inferior leads. Laboratory evaluation revealed leukocytosis of 17.9, BUN 51, creatinine 1.71, lactic acid 1.6, AST 65, ALT 59, troponin 0.013, and proBNP 176 with coronavirus PCR positive. The patient had an SpO2 of 91% on room air on arrival. Currently requiring 5 L of oxygen by nasal cannula. Pulmonology also consulted. On IV antibiotics and oral Decadron. Still requiring high amounts of oxygen. Subjective: Patient seen and examined at bedside. Still requiring high amounts of oxygen. Remains confused. Received quetiapine overnight. Pertinent positives and negatives as discussed above, a complete review of systems was performed and all other systems are negative. Vitals Signs Reviewed. General: nontoxic, no distress, appears at stated age Derm: warm, dry Head: atraumatic, normocephalic, symmetric Eyes: EOMI, no lid lag, anicteric sclera Mouth: no lip lesion, mucus membranes moist Cardiovascular: S1S2 reg, no murmur Lungs: Bilateral rales , no accessory muscle use, supplemental oxygen Abdominal: soft, nontender to palpation, no guarding, no appreciable organomegaly Ext: no gross muscle atrophy, no edema, no contractures Neuro: CN II-XI grossly intact, no focal neuro deficits Psych: Alert, orientedx1, appropriate affect Data Reviewed Today: Pertinent Labs: WBC 12.2, creatinine 1.16 Imaging: No new imaging Assessment and Plan: Patient is critically ill, prognosis guarded, needs close monitoring. Active: Acute COVID-19 pneumonia Acute hypoxic respiratory failure Sepsis secondary to superimposed community-acquired pneumonia Acute encephalopathy, likely delirium Acute kidney injury, resolved History of hypertension Dyslipidemia -Pulmonology note reviewed, continue supportive care, chest x-ray ordered for tomorrow -Status post azithromycin, continue ceftriaxone 2 g IV every 24 hours -Symbicort twice a day -Cultures negative growth to date -Continue to wean oxygen -On Decadron 6 mg daily, monitor for mental status, delirium -Hold antihypertensives -Delirium precautions -Received quetiapine 50 mg overnight -Continue statin DVT ppx: Lovenox Code status: Full code Anticipated discharge place: Pending clinical course Anticipated discharge time: Pending clinical course Objective - Vital Signs Vital signs: Vital Signs Temp 97.6 F 08/21/23 07:11 Pulse 58 L 08/21/23 07:11 Resp 20 08/21/23 07:11 BP 103/51 08/21/23 07:11 Pulse Ox 94 L 08/21/23 07:11 FiO2 Intake & Output 08/20/23 08/21/23 08/21/23 18:59 06:59 18:59 Intake Total 322 120 237 Balance 322 120 237 Intake: Oral 322 120 237 Other: Voiding Method Toilet Toilet Urinal Urinal - Labs CBC & Chem 7: 08/21/23 07:17 08/21/23 07:17 Labs: Abnormal Lab Results - Last 24 Hours (Table) 08/21/23 08/21/23 Range/Units 07:17 07:17 WBC 12.2 H (3.8-10.6) k/uL Neutrophils # 10.3 H (1.3-7.7) k/uL Lymphocytes # 0.9 L (1.0-4.8) k/uL Sodium 136 L (137-145) mmol/L Chloride 108 H (98-107) mmol/L Carbon Dioxide 16 L (22-30) mmol/L BUN 45 H (9-20) mg/dL Glucose 143 H (74-99) mg/dL ALT 57 H (4-49) U/L Total Protein 6.0 L (6.3-8.2) g/dL Albumin 2.9 L (3.5-5.0) g/dL Microbiology - Last 24 Hours (Table) 08/18/23 17:15 Blood Culture - Preliminary Blood 08/18/23 17:30 Blood Culture - Preliminary Blood
[2023-08-22 04:10] VITALS: TEMP 97.6
[2023-08-22 05:12] LABS: Basophils % (A) 0 %; Eosinophils % (A) 0 %; HCT 40.9 % (39.0-53.0); HGB 13.2 gm/dL (13.0-17.5); Lymphocytes % (A) 10 %; MCHC 32.2 g/dL (31.0-37.0); MCV 96.3 fL (80.0-100.0); Mean Platelet Volume 7.5; Monocytes # (A) 0.5 k/uL (0-1.0); Monocytes % (A) 6 %; Neutrophils # (A) 7.8 k/uL (1.3-7.7); Neutrophils % (A) 82 %; Platelet Count 426 k/uL (150-450); RBC 4.25 m/uL (4.30-5.90); RDW 12.9 % (11.5-15.5); WBC 9.6 k/uL (3.8-10.6)
[2023-08-22 05:21] LABS: African American GFR (CKD) 77 (>60 ml/min/1.73 sqM); Anion Gap 9 mmol/L; Blood Urea Nitrogen 37 mg/dL (9-20); Calcium 8.6 mg/dL (8.4-10.2); Carbon Dioxide 20 mmol/L (22-30); Chloride 108 mmol/L (98-107); Glucose 143 mg/dL (74-99); Non-African American GFR(CKD) 66 (>60 ml/min/1.73 sqM); Sodium 137 mmol/L (137-145)
[2023-08-22 07:10] VITALS: BP 110/57; RESP 16
--- NOTE | 2023-08-22 07:53 | XR ---
EXAMINATION TYPE: XR chest 1V portable DATE OF EXAM: 08/22/2023 6:20 AM CLINICAL INDICATION:Male, 72 years old with history of CoVID pneumonia; [facility] COMPARISON: Chest radiographs from 08/19/2023. TECHNIQUE: XR chest 1V portable Frontal view of the chest. FINDINGS: Lungs/Pleura: There is no evidence of pleural effusion, focal consolidation, or pneumothorax. Pulmonary vascularity: Unremarkable. Heart/mediastinum: Cardiomediastinal silhouette is unremarkable. Musculoskeletal: No acute osseous pathology. IMPRESSION: Improved aeration with scattered scattered subtle opacities.
[2023-08-22] MEDS: ALBUTEROL HFA INHALER INHALATION PRN (08:13)
[2023-08-22] MEDS: SYMBICORT 160-4.5 MCG INHALER INHALATION SCH (08:14)
[2023-08-22] MEDS: ATORVASTATIN 10 MG TAB PO SCH (08:26)
[2023-08-22] MEDS: dexAMETHasone 2 MG TAB PO SCH (08:26)
[2023-08-22 09:07] VITALS: PULSE 65
--- NOTE | 2023-08-22 10:27 | P.PN ---
Subjective Progress Note Date: 08/22/23 I am seeing this patient in consultation today 08/19/2023 in the emergency room, room 2. He is a 72-year-old white male with past medical history significant for diabetes mellitus, hypertension, hyperlipidemia, remote ex-smoker. Denies any history of COPD or asthma. His primary care provider is Dr. Leal. Patient has been experiencing shortness of breath, a nonproductive cough, and increased fatigue for about a week and a half. He denies any sputum production, fevers, chest pain, hemoptysis. Patient did test positive for COVID-19 on arrival. He does state he's had his initial COVID vaccination, but no booster injections. He is currently sitting up in bed, on 4 L/m nasal cannula, in no acu te distress. He does not wear oxygen at home. Chest x-ray on arrival demonstrated left perihilar density as well as a right medial lung base opacity which may reflect developing pneumonia. Suspect COVID-19 pneumonia. He has been started on Decadron. CBC shows a WBC count of 17.9, hemoglobin 15.3, hematocrit 45.3, platelets 411. BMP shows sodium 137, potassium 4.4, chloride 100, serum bicarbonate 21, BUN 51, creatinine 1.71, glucose 182. Troponin is not elevated. NT proBNP low. Normal saline infusing at 75 mL per hour. Underlying bacterial infection is not excluded. Patient is empirically covered on a combination of azithromycin and Rocephin. Procalcitonin levels pending. He is afebrile. Vital signs are stable. The patient is seen today 08/20/2023 in follow-up on the regular medical floor. He is currently resting in bed. Awake and alert in no acute distress. He is requiring 6 L high flow nasal cannula to maintain O2 saturations in the 90s. He has normal saline at 75 ML's per hour. Chest x-ray showing some right middle lobe and left lower lobe infiltrate. Pro-calcitonin was 0.31. Legionella screen was negative. Blood cultures reveal no growth to date. White count 18.7. Hemoglobin 13.4. Sodium 140. Potassium 5.0. Bicarb 18. BUN 48. Creatinine 1.3. Glucose 193. AST 51. ALT 54. He is continued on azithromycin and Rocephin. Continued on Symbicort, Lovenox, Decadron. The patient is seen today 08/21/2023 in follow-up on the regular medical floor. He is currently resting comfortably in bed. Awake and alert in no acute distress. Somewhat agitated this morning. He is maintaining O2 saturations in the 90s on 6 L high flow nasal cannula. He is continued on Symbicort and albuterol inhalations. He remains on ceftriaxone, completed azithromycin. Continue on Decadron. Lovenox for DVT prophylaxis. We'll cultures revealed no growth. Today's labs are pending. The patient is seen today 08/22/2023 in follow-up on the regular medical floor. He is up ambulating in his room. Awake and alert in no acute distress. He is maintaining good O2 saturations in the 90s on room air. He's been afebrile. Hemodynamically stable. Follow-up chest x-ray shows improved aeration. No evidence of pleural effusion. No focal consolidation. No pneumothorax. Blood cultures reveal no growth. White count 9.6. Hemoglobin 13.2. Platelets 426. Sodium 137. Potassium 5.0. Bicarb 20. BUN 37. Creatinine 1.11. Glucose 143. His continued on Symbicort and albuterol. Remains on Decadron. Remains on Lovenox for DVT prophylaxis. He is quite anxious to go home. Objective - Vital Signs Vital signs: Vital Signs Temp 97.6 F 08/22/23 07:07 Pulse 65 08/22/23 09:02 Resp 16 08/22/23 07:07 BP 110/57 08/22/23 07:07 Pulse Ox 95 08/22/23 09:02 FiO2 Intake & Output 08/21/23 08/22/23 08/22/23 18:59 06:59 18:59 Intake Total 957 Balance 957 Intake: Oral 957 Other: Voiding Method Toilet Urinal # Voids 1 2 - Exam GENERAL EXAM: Alert, 72-year-old male, ambulating in his room, on room air, in no apparent distress. HEAD: Normocephalic and atraumatic EYES: Normal reaction of pupils, equal size. NOSE: Clear with pink turbinates. THROAT: No erythema or exudates. NECK: No masses, no JVD. CHEST: No chest wall deformity. LUNGS: Equal air entry with diminished lung sounds throughout. CVS: S1 and S2 normal with no audible murmur, regular rhythm. No extra heart sounds ABDOMEN: No hepatosplenomegaly, active bowel sounds, no guarding or rigidity. SPINE: No scoliosis or deformity SKIN: No rashes CENTRAL NERVOUS SYSTEM: No focal deficits, tone is normal in all 4 extremities. EXTREMITIES: There is no peripheral edema, clubbing, or cyanosis. Peripheral pulses are intact. - Labs CBC & Chem 7: 08/22/23 04:59 08/22/23 04:59 Labs: Abnormal Lab Results - Last 24 Hours (Table) 08/22/23 08/22/23 Range/Units 04:59 04:59 RBC 4.25 L (4.30-5.90) m/uL Neutrophils # 7.8 H (1.3-7.7) k/uL Chloride 108 H (98-107) mmol/L Carbon Dioxide 20 L (22-30) mmol/L BUN 37 H (9-20) mg/dL Glucose 143 H (74-99) mg/dL Microbiology - Last 24 Hours (Table) 08/18/23 17:15 Blood Culture - Preliminary Blood 08/18/23 17:30 Blood Culture - Preliminary Blood Assessment and Plan Assessment: Acute hypoxemic respiratory failure, likely secondary to acute COVID-19 pneumonia, underlying superimposed bacterial infection is not excluded. Chest x-ray demonstrates multifocal infiltrates particularly in the left perihilar region, as well as, at the right medial lung base. He did test positive for COVID-19 on arrival. Procalcitonin level 0.31. He has been treated with ceftriaxone and azithromycin. Follow-up chest x-ray showed improved aeration. No focal consolidation. No pleural effusion. No pneumothorax. Leukocytosis secondary to above improved No baseline kidney function, consider acute kidney injury, improved Diabetes mellitus, type 2 Hypertension Hyperlipidemia Remote ex-smoker Plan: The patient was seen and evaluated Chest x-ray, labs and medications reviewed Chest x-ray shows improved aeration Currently stable and on room air Continuing on Symbicort, albuterol Complete a 10 day course of Decadron Cleared for discharge from the pulmonary standpoint This patient was seen independently by the pulmonary nurse practitioner I have personally seen and examined the patient, performed the documentation and the assessment and plan as written. Number of minutes spent on the visit: 22.
--- NOTE | 2023-08-22 11:58 | P.DS ---
Providers Date of admission: 08/18/23 17:19 Expected date of discharge: 08/22/23 Attending physician: José Faulkner MD Consults: 08/18/23 17:19 Consult Physician Routine Consulting Provider: Ankur Santoro Consult Reason/Comments: hypoxiay Do you want consulting provider notified?: Yes Primary care physician: [facility] Course: 72-year-old male with a PMH of hypertension and hyperlipidemia who presented to the emergency room with complaints of generalized weakness and cough. Chest x- ray in the emergency room revealed bilateral opacities concerning for pneumonia. EKG revealed sinus rhythm at 86 bpm with Q waves in the inferior leads. Laboratory evaluation revealed leukocytosis of 17.9, BUN 51, creatinine 1.71, lactic acid 1.6, AST 65, ALT 59, troponin 0.013, and proBNP 176 with coronavirus PCR positive. The patient had an SpO2 of 91% on room air on arrival. He required upwards of 6L NC to maintain O2 saturation > 92%. Pulmonology also consulted. He completed a course of Rocephin and Azithromycin. 08/22 Patient was seen and examined. Passed his home O2 eval. is at bedside adamant about patient being discharged home. I will discharge the patient on Albuterol INH PRN, Symbicort INH BID and 5 more days of Decadron. Advised to obtain a pulse ox and come back to the ER if persistently less that 88%. and patient verbalized understanding of the plan. Pertinent studies CXR. General: nontoxic, moderate distress, appears at stated age Derm: warm, dry Head: atraumatic, normocephalic, symmetric Eyes: EOMI, no lid lag, anicteric sclera ENT: Nose and ears atraumatic Neck: No thyromegaly, supple Cardiovascular: S1S2 reg, no murmur, no edema Lungs: Decreased BS bilateral, no rhonchi, no rales, no wheeze, no accessory muscle use Ext: no gross muscle atrophy, muscle strength muscle strength 5 out of 5 in all 4 extremities, no contractures Psych: Alert, oriented, appropriate affect Discharge Diagnosis: Acute COVID-19 pneumonia Acute hypoxic respiratory failure Sepsis secondary to superimposed community-acquired pneumonia Acute encephalopathy, likely delirium Acute kidney injury, resolved History of hypertension Dyslipidemia This complex discharge took 35 minutes to complete. Patient Condition at Discharge: Stable Plan - Discharge Summary Discharge Rx Participant: No New Discharge Prescriptions: New Budesonide-Formot 160-4.5 Mcg [Symbicort 160-4.5 Mcg Inhaler] 2 puff INHALATION RT-BID #1 each Albuterol Inhaler [Ventolin Hfa Inhaler] 2 puff INHALATION RT-QID PRN #1 each PRN Reason: Shortness Of Breath Or Wheezing dexAMETHasone ORAL [Hexadrol] 6 mg PO DAILY #15 tab Continue Ascorbic Acid [Vitamin C] 500 mg PO DAILY Multivit-Min/Folic/Vit K/Lycop [Men's Multivitamin Tablet] 1 tab PO DAILY Dapagliflozin Propanediol [Farxiga] 10 mg PO DAILY Fish Oil/Dha/Epa [Fish Oil 1,200 mg Fish Oil] 1 cap PO DAILY Phenyleph/Acetaminophn/Doxylam [Vicks Dayquil-Nyquil Sinex Cap] 1 cap PO Q4H PRN PRN Reason: Cold Symptoms Cyanocobalamin (Vitamin B-12) [Vitamin B-12] 2,500 mcg PO DAILY Lovastatin [Mevacor] 20 mg PO DAILY Discontinued Aspirin 650 mg PO DAILY PRN PRN Reason: Pain Potassium Gluconate 99 mg PO DAILY Losartan/Hydrochlorothiazide [Losartan-Hctz 100-25 mg Tab] 1 tab PO DAILY Discharge Medication List Ascorbic Acid [Vitamin C] 500 mg PO DAILY 01/09/22 [History] Fish Oil/Dha/Epa [Fish Oil 1,200 mg Fish Oil] 1 cap PO DAILY 01/09/22 [History] Multivit-Min/Folic/Vit K/Lycop [Men's Multivitamin Tablet] 1 tab PO DAILY 01/09/22 [History] Cyanocobalamin (Vitamin B-12) [Vitamin B-12] 2,500 mcg PO DAILY 08/18/23 [History] Dapagliflozin Propanediol [Farxiga] 10 mg PO DAILY 08/18/23 [History] Lovastatin [Mevacor] 20 mg PO DAILY 08/18/23 [History] Phenyleph/Acetaminophn/Doxylam [Vicks Dayquil-Nyquil Sinex Cap] 1 cap PO Q4H PRN 08/18/23 [History] Albuterol Inhaler [Ventolin Hfa Inhaler] 2 puff INHALATION RT-QID PRN #1 each 08/22/23 [Rx] Budesonide-Formot 160-4.5 Mcg [Symbicort 160-4.5 Mcg Inhaler] 2 puff INHALATION RT-BID #1 each 08/22/23 [Rx] dexAMETHasone ORAL [Hexadrol] 6 mg PO DAILY #15 tab 08/22/23 [Rx] Follow up Appointment(s)/Referral(s): [facility] [NON-STAFF] - As Needed (Home [employer] company.) Raymundo Leal MD [Primary Care Provider] - 1-2 days Activity/Diet/Wound Care/Special Instructions: Diet: Low salt Follow up with your PCP within 1-2 days of discharge. Obtain a pulse ox. Come back to the hospital if your pulse ox is consistently < 88%. Discharge Disposition: HOME SELF-CARE
== END 2023-08-22 10:25 | disposition home or self-care (01) | DRG 871 ==
LOC: EC 12:51 → 4SSUR 17:19 → 6NMEDSUR 08-19 03:57
PROVIDERS: ADMIT Student in an Organized Health Care Education/Training Program; ATTEND Student in an Organized Health Care Education/Training Program
PROC: 3E0F7SF Introduction of Other Gas into Respiratory Tract, Via Natural or Artificial Opening (ICD-10-PCS; principal; 2023-08-18)
DX: A41.89 Other specified sepsis (principal); J12.82 Pneumonia due to coronavirus disease 2019; J96.01 Acute respiratory failure with hypoxia; U07.1 COVID-19; N17.9 Acute kidney failure, unspecified; G93.49 Other encephalopathy; E78.5 Hyperlipidemia, unspecified; I10 Essential (primary) hypertension; Z87.891 Personal history of nicotine dependence; E11.9 Type 2 diabetes mellitus without complications; Z79.899 Other long term (current) drug therapy; Z79.84 Long term (current) use of oral hypoglycemic drugs; Z82.49 Family history of ischemic heart disease and other diseases of the circulatory system; Z87.01 Personal history of pneumonia (recurrent)
CPT/HCPCS: 36415; 71045; 80048; 80053; 83605; 83735; 83880; 84100; 84145; 84484; 85025; 85610; 85730; 87040; 87449; 87636; 93005; 94640; 94760; 96361; 96365; 96368; 99291

== ENCOUNTER 2024-12-18 17:19 | Inpatient (IN) | payer MEDICARE, BC ==
--- NOTE | 2024-12-18 17:34 | ED ---
Chest Pain HPI - General Chief Complaint: Chest Pain Stated Complaint: ABN EKG Time Seen by Provider: 12/18/24 17:33 Source: patient, RN notes reviewed, old records reviewed Mode of arrival: ambulatory Limitations: no limitations - History of Present Illness Initial Comments: This is a 74-year-old male to the ER for evaluation of chest pain today. Ayala ent has mainly exertional chest pain and chest pain that he went to see his primary care for, he was seen by his primary care was found to have EKG changes and sent to the ER for evaluation. On arrival to the ER patient's chest pain is improving, he does feel like he was "cool and clammy also earlier today without shortness of breath but he always says shortness of breath shortness of breath is not new. Patient has no prior history of heart disease MD Complaint: chest pain Onset: during exertion Pain Location: substernal, left chest Pain Radiation: none Severity: moderate Severity scale (1-10): 7 Quality: tightness, aching, heaviness Consistency: constant Improves With: nothing Worsens With: exertion Anginal Symptoms: sense of impending doom Other Symptoms: palpitations Treatments Prior to Arrival: none - Related Data Home Medications Medication Instructions Recorded Confirmed Ascorbic Acid [Vitamin C] 1,000 mg PO DAILY 01/09/22 12/18/24 Dapagliflozin Propanediol [Farxiga] 10 mg PO DAILY 08/18/23 12/18/24 Lovastatin [Mevacor] 20 mg PO DAILY 08/18/23 12/18/24 Cyanocobalamin [Vitamin B-12] 500 mcg PO DAILY 12/18/24 12/18/24 Donepezil [Aricept] 20 mg PO DAILY 12/18/24 12/18/24 Losartan/Hydrochlorothiazide 1 tab PO DAILY 12/18/24 12/18/24 [Hyzaar 100-25 Tablet] Holland-3 600mg 600 mg PO DAILY 12/18/24 12/18/24 Potassium Gluconate 99 mg PO DAILY 12/18/24 12/18/24 Allergies Allergy/AdvReac Type Severity Reaction Status Date / Time No Known Allergies Allergy Verified 12/18/24 17:52 Review of Systems ROS Statement: Those systems with pertinent positive or pertinent negative responses have been documented in the HPI. ROS Other: All systems not noted in ROS Statement are negative. EKG Findings - EKG Comments: EKG Findings:: EKG sinus 80 SC 246 QRS 110 QTc 396 - EKG Results: EKG: interpreted by ERMD, no acute changes (Patient does have EKG changes here in the ER to improvement, ST depression is resolved aVR ST elevation is resolved) Past Medical History Past Medical History: COPD, Diabetes Mellitus, Hyperlipidemia, Hypertension, Pneumonia Additional Past Medical History / Comment(s): hx lumbosacral strain History of Any Multi-Drug Resistant Organisms: None Reported Past Surgical History: Hernia Repair Additional Past Surgical History / Comment(s): vasectomy Past Anesthesia/Blood Transfusion Reactions: No Reported Reaction Past Psychological History: No Psychological Hx Reported Smoking Status: Never smoker Past Alcohol Use History: Rare - Past Family History Father Family Medical History: Cancer Sister(s) Family Medical History: Cancer Brother(s) Family Medical History: Myocardial Infarction ([place]) General Exam Limitations: no limitations General appearance: alert, in no apparent distress Head exam: Present: atraumatic, normocephalic, normal inspection Eye exam: Present: normal appearance, PERRL, EOMI. Absent: scleral icterus, conjunctival injection, periorbital swelling ENT exam: Present: normal exam, mucous membranes moist Neck exam: Present: normal inspection. Absent: tenderness, meningismus, lymphadenopathy Respiratory exam: Present: normal lung sounds bilaterally. Absent: respiratory distress, wheezes, rales, rhonchi, stridor Cardiovascular Exam: Present: regular rate, normal rhythm, normal heart sounds. Absent: systolic murmur, diastolic murmur, rubs, gallop, clicks GI/Abdominal exam: Present: soft, normal bowel sounds. Absent: distended, tenderness, guarding, rebound, rigid Extremities exam: Present: normal inspection, full ROM, normal capillary refill. Absent: tenderness, pedal edema, joint swelling, calf tenderness Back exam: Present: normal inspection Neurological exam: Present: alert, oriented X3, CN II-XII intact Psychiatric exam: Present: normal affect, normal mood Skin exam: Present: warm, dry, intact, normal color. Absent: rash Course Vital Signs 12/18/24 12/18/24 17:26 19:29 Temperature 97.6 F Pulse Rate 85 90 Respiratory 18 18 Rate Blood Pressure 113/70 96/60 O2 Sat by Pulse 94 L 96 Oximetry - Reevaluation(s) Reevaluation #1: 12/18/24 17:34 Medical records reviewed Reevaluation #2: 12/18/24 20:07 Patient is without chest pain here in the ER States chest pain is mostly exertional Reevaluation #3: 12/18/24 20:07 Patient informed of results and questions answered Reevaluation #4: Was pt. sent in by a medical professional or institution (, [facility]EEANN, GARDENING SUPERVISOR, urgent care, hospital, or fci...) When possible be specific @ -no Did you speak to anyone other than the patient for history (EMS, parent, family, police, friend...)? What history was obtained from this source @ -no Did you review nursing and triage notes (agree or disagree)? Why? @ -agree Are old charts reviewed (outside hosp., previous admission, EMS record, old EKG, old radiological studies, urgent care reports/EKG's, fci records)? Report findings @ -yes Differential Diagnosis (chest pain, altered mental status, abdominal pain women, abdominal pain men, vaginal bleeding, weakness, fever, dyspnea, syncope, headache, dizziness, GI bleed, back pain, seizure, CVA, palpatations, mental health, musculoskeletal)? @ -prior EKG interpreted by me (3pts min.). @ -yes X-rays interpreted by me (1pt min.). @ -yes negative for acute disease CT interpreted by me (1pt min.). @ -no U/S interpreted by me (1pt. min.). @ -no What testing was considered but not performed or refused? (CT, X-rays, U/S, labs)? Why? @ -none What meds were considered but not given or refused? Why? @ -none Did you discuss the management of the patient with other professionals (professionals i.e. , LEEANN, GARDENING SUPERVISOR, lab, RT, psych nurse, social sciences department chair, bow maker production, teacher, science and operations officer, caseworker intake)? Give summary @ -no Was smoking cessation discussed for >3mins.? @ -no Was critical care preformed (if so, how long)? @ -no Were there social determinants of health that impacted care today? How? (Homelessness, low income, unemployed, alcoholism, drug addiction, transportation, low edu. Level, literacy, decrease access to med. care, long term, rehab)? @ -none Was there de-escalation of care discussed even if they declined (Discuss DNR or withdrawal of care, Hospice)? DNR status @ -no What co-morbidities impacted this encounter? (DM, HTN, Smoking, COPD, CAD, Cancer, CVA, ARF, Chemo, Hep., AIDS, mental health diagnosis, sleep apnea, morbid obesity)? @ -none Was patient admitted / discharged? Hospital course, mention meds given and route, prescriptions, significant lab abnormalities, going to OR and other pertinent info. @ - Undiagnosed new problem with uncertain prognosis? @ -no Drug Therapy requiring intensive monitoring for toxicity (Heparin, Nitro, Insulin, Cardizem)? @ -no Were any procedures done? @ -no Diagnosis/symptom? @ - Acute, or Chronic, or Acute on Chronic? @ -Acute Uncomplicated (without systemic symptoms) or Complicated (systemic symptoms)? @ -Complicated Side effects of treatment? @ -no Exacerbation, Progression, or Severe Exacerbation? @ -exacerbation Poses a threat to life or bodily function? How? (Chest pain, [place], PR, pneumonia, PE, COPD, DKA, ARF, appy, cholecystitis, CVA, Diverticulitis, Homicidal, S uicidal, threat to staff... and all critical care pts) @ -yes Reevaluation #5: Differential Chest Pain: Stable Angina, Unstable Angina, STEMI, NSTEMI Aortic Dissection, Pneumothorax, Musculoskeletal, Esophageal Spasm GERD, Cholecystitis, Pancreatitis, Zoster, this is not meant to be an all-inclusive list. - Consultations Consultation #1: Spoke with oni who agrees to admit this patient Chest Pain MDM - MDM 74 male to the ER for evaluation, acute EKG changes in the outpatient setting aVR ST elevation mild with V1 V2 V3 ST depression, patient's symptoms are resolved here in the ER mainly exertional but patient does have elevated troponin will stay for ACS Critical Care Time Critical Care Time: Yes Total Critical Care Time: 31 Disposition Clinical Impression: Chest pain, Acute non-ST elevation myocardial infarction (NSTEMI) Disposition: ADMITTED IP TO THIS HOSP Condition: Serious Is patient prescribed a controlled substance at d/c from ED?: No Referrals: Raymundo Leal MD [Primary Care Provider] - 1-2 days Time of Disposition: 20:00
[2024-12-18] MEDS: SODIUM CHLORIDE 0.9% 1,000 ML IV STA (18:12)
[2024-12-18 18:15] LABS: Basophils # (A) 0.05 10*3/uL (0.00-0.10); Basophils % (A) 0.7 %; Eosinophils # (A) 0.15 10*3/uL (0.04-0.35); Eosinophils % (A) 2.2 %; HCT 45.9 % (39.6-50.0); HGB 16.3 g/dL (13.0-17.0); Lymphocytes # (A) 1.02 10*3/uL (0.90-5.00); Lymphocytes % (A) 15.1 %; MCH 32.3 pg (27.0-32.0); MCHC 35.5 g/dL (32.0-37.0); MCV 90.9 fL (80.0-97.0); Mean Platelet Volume 9.7 fL (9.5-12.2); Monocytes # (A) 0.66 10*3/uL (0.20-1.00); Monocytes % (A) 9.7 %; Neutrophils # (A) 4.86 10*3/uL (1.80-7.70); Neutrophils % (A) 71.9 %; Platelet Count 231 10*3/uL (140-440); RBC 5.05 10*6/uL (4.40-5.60); RDW 13.4 % (11.5-14.5); WBC 6.77 10*3/uL (4.50-10.00)
[2024-12-18 18:27] LABS: ALT 22 U/L (4-49); AST 25 U/L (17-59); African American GFR (CKD) 60 (>60 ml/min/1.73 sqM); Albumin 4.6 g/dL (3.5-5.0); Alkaline Phosphatase 55 U/L (38-126); Anion Gap 12 mmol/L; Blood Urea Nitrogen 22 mg/dL (9-20); Calcium 10.1 mg/dL (8.4-10.2); Carbon Dioxide 22 mmol/L (22-30); Chloride 104 mmol/L (98-107); Glucose 98 mg/dL (74-99); Lipase 173 U/L (23-300); Non-African American GFR(CKD) 52 (>60 ml/min/1.73 sqM); Potassium 4.1 mmol/L (3.5-5.1); Sodium 138 mmol/L (137-145); Total Bilirubin 0.5 mg/dL (0.2-1.3); Total Protein 7.3 g/dL (6.3-8.2)
[2024-12-18 18:34] LABS: Partial Thromboplastin Time 24.2 sec (22.0-30.0)
--- NOTE | 2024-12-18 18:34 | XR ---
EXAMINATION TYPE: XR chest 2V DATE OF EXAM: 12/18/2024 5:55 PM COMPARISON: Chest radiographs from 08/22/2023 CLINICAL INDICATION: Male, 74 years old with history of Chest Pain; [facility] TECHNIQUE: XR chest 2V Frontal and lateral views of the chest. FINDINGS: Lungs/Pleura: There is flattening of the diaphragm with increased lucency of the lungs. No evidence o f pneumothorax, pleural effusion or focal consolidation. Pulmonary vascularity: Unremarkable. Heart/mediastinum: Cardiomediastinal silhouette is unremarkable. Musculoskeletal: No acute osseous pathology. IMPRESSION: 1. No acute cardiopulmonary disease process. 2. COPD changes. [facility], , 12/18/2024 6:32 PM
[2024-12-18] MEDS ORDERED: NITROGLYCERIN SL TABS 0.4 MG TAB SUBLINGUAL PRN (20:05)
[2024-12-18] MEDS: ATORVASTATIN 80 MG TAB PO SCH (20:32)
[2024-12-18] MEDS: ASPIRIN 81 MG PO STA (20:32)
[2024-12-18] MEDS: HEPARIN SODIUM 1,000 UN/ML (10ML VL) IV ONE (20:34)
[2024-12-18] MEDS: HEPARIN SOD,PORK IN 0.45% NACL 25,000 UNIT in 0.45% NACL 1 250ML.BAG IV SCH (20:35)
[2024-12-18] MEDS: METOPROLOL TARTRATE 25 MG TAB PO SCH (21:33)
--- NOTE | 2024-12-18 23:26 | P.HPIM ---
History of Present Illness H&P Date: 12/18/24 Chief Complaint: chest pain The patient is a 74 yo male who presents for chest pain evaluation after awaking this am with chest pain. The patient was seen by his PCP andd was noted to have EKG changes< He denied prior hisotry of chest pain. The patient was seen in the ED and EKG changes resolved> he denied diaphoresis he was started on a Heparin drip and hospitalized for further workup and management Review of Systems Cardiovascular: Reports as per HPI, Reports dyspnea on exertion, Reports shortness of breath Past Medical History Past Medical History: COPD, Diabetes Mellitus, Hyperlipidemia, Hypertension, Pneumonia Additional Past Medical History / Comment(s): hx lumbosacral strain History of Any Multi-Drug Resistant Organisms: None Reported Past Surgical History: Hernia Repair Additional Past Surgical History / Comment(s): vasectomy Past Anesthesia/Blood Transfusion Reactions: No Reported Reaction Past Psychological History: No Psychological Hx Reported Smoking Status: Never smoker Past Alcohol Use History: Rare - Past Family History Father Family Medical History: Cancer Sister(s) Family Medical History: Cancer Brother(s) Family Medical History: Myocardial Infarction ([place]) Medications and Allergies Home Medications Medication Instructions Recorded Confirmed Type Ascorbic Acid [Vitamin C] 1,000 mg PO DAILY 01/09/22 12/18/24 History Dapagliflozin Propanediol [Farxiga] 10 mg PO DAILY 08/18/23 12/18/24 History Lovastatin [Mevacor] 20 mg PO DAILY 08/18/23 12/18/24 History Cyanocobalamin [Vitamin B-12] 500 mcg PO DAILY 12/18/24 12/18/24 History Donepezil [Aricept] 20 mg PO DAILY 12/18/24 12/18/24 History Losartan/Hydrochlorothiazide 1 tab PO DAILY 12/18/24 12/18/24 History [Hyzaar 100-25 Tablet] [place]-3 600mg 600 mg PO DAILY 12/18/24 12/18/24 History Potassium Gluconate 99 mg PO DAILY 12/18/24 12/18/24 History Allergies Allergy/AdvReac Type Severity Reaction Status Date / Time No Known Allergies Allergy Verified 12/18/24 17:52 Physical Exam Vitals: Vital Signs Temp Pulse Resp BP Pulse Ox 12/18/24 22:35 76 18 104/52 97 12/18/24 21:35 64 18 88/78 96 12/18/24 20:36 65 18 88/59 97 12/18/24 19:29 90 18 96/60 96 12/18/24 17:26 97.6 F 85 18 113/70 94 L Intake and Output 12/18/24 12/18/24 12/19/24 14:59 22:59 06:59 Other: Weight 88.451 kg - Constitutional General appearance: cooperative - Respiratory Respiratory: bilateral: CTA - Cardiovascular Rhythm: regular - Gastrointestinal General gastrointestinal: normal bowel sounds - Neurologic Neurologic: CNII-XII intact - Musculoskeletal Musculoskeletal: strength equal bilaterally Results CBC & Chem 7: 12/18/24 18:06 12/18/24 18:06 Labs: Abnormal Lab Results - Last 24 Hours (Table) 12/18/24 12/18/24 12/18/24 Range/Units 18:06 18:06 18:06 MCH 32.3 H (27.0-32.0) pg APTT (22.0-30.0) sec D-Dimer 0.79 H (<0.60) mg/L FEU BUN 22 H (9-20) mg/dL Creatinine 1.34 H (0.66-1.25) mg/dL Troponin I (0.000-0.034) ng/mL 12/18/24 12/18/24 12/18/24 Range/Units 18:06 20:54 20:54 MCH (27.0-32.0) pg APTT 60.3 H (22.0-30.0) sec D-Dimer (<0.60) mg/L FEU BUN (9-20) mg/dL Creatinine (0.66-1.25) mg/dL Troponin I 0.323 H* 2.510 H* (0.000-0.034) ng/mL Chest x-ray: report reviewed Assessment and Plan (1) Acute non-ST elevation myocardial infarction (NSTEMI) Narrative/Plan: NPO post midnught, Crdiology consult, Heparin Drip, [place] Current Visit: Yes Status: Acute Code(s): I21.4 - NON-ST ELEVATION (NSTEMI) MYOCARDIAL INFARCTION SNOMED Code(s): 363198287 (2) Chest pain Narrative/Plan: secondary to NSTEMI, pain control < nitro, Morphine prn discussed with ED provider Current Visit: Yes Status: Acute Code(s): R07.9 - CHEST PAIN, UNSPECIFIED SNOMED Code(s): 32350886 (3) Diabetes Narrative/Plan: home regimen and SS coverage Current Visit: Yes Status: Acute Code(s): E11.9 - TYPE 2 DIABETES MELLITUS WITHOUT COMPLICATIONS SNOMED Code(s): 54429334 (4) HTN (hypertension) Narrative/Plan: monitor and titrate as needed Current Visit: Yes Status: Acute Code(s): I10 - ESSENTIAL (PRIMARY) HYPERTENSION SNOMED Code(s): 34691263 (5) Dementia Narrative/Plan: continue Aricept Current Visit: Yes Status: Acute Code(s): F03.90 - UNSP DEMENTIA, UNSP SEVERITY, WITHOUT BEH/PSYCH/MOOD/ANX SNOMED Code(s): 07102681 Plan: discussed with and patient, NSTEMI, pain control, Cardiology consult, NPO post midnight, home meds
[2024-12-19 02:08] VITALS: RESP 18
[2024-12-19 07:11] LABS: Mean Platelet Volume 9.7 fL (9.5-12.2); Platelet Count 216 10*3/uL (140-440)
[2024-12-19 08:06] VITALS: TEMP 98
[2024-12-19] MEDS: ASPIRIN 325 MG TAB PO SCH (08:12)
[2024-12-19 10:20] LABS: Chol/HDL Ratio 4.11 Ratio; LDL Cholesterol,Calculated 96.1 mg/dL (0.0-131.0)
[2024-12-19] MEDS: DAPAGLIFLOZIN PROPANEDIOL 10 MG TABLET PO SCH (10:45)
[2024-12-19] MEDS: SODIUM CHLORIDE 0.9% 1,000 ML IV SCH (10:45)
[2024-12-19] MEDS: DONEPEZIL 10 MG TAB PO SCH (10:45)
--- NOTE | 2024-12-19 12:07 | CA ---
Transthoracic Echo Report Name: Dave Brewster Age: 74 Gender: M : 1950 Exam Date: 12/19/2024 09:24 Exam Location: [facility] Ht (in): 68 Wt (lb): 195 Ordering Physician: Reginald Barajas DO Attending/Referring Phys: [id number], [employer] Instructor Kerry Victoria RDCS Procedure CPT: Indications: nstemi Cardiac Hx: Technical Quality: Good Contrast 1: Total Dose (mL): Contrast 2: Total Dose (mL): MEASUREMENTS (Male / Female) Normal Values 2D ECHO LV Diastolic Diameter PLAX 6.1 cm 4.2 - 5.9 / 3.9 - 5.3 cm LV Systolic Diameter PLAX 4.0 cm IVS Diastolic Thickness 0.9 cm 0.6 - 1.0 / 0.6 - 0.9 cm LVPW Diastolic Thickness 1.2 cm 0.6 - 1.0 / 0.6 - 0.9 cm LV Relative Wall Thickness 0.3 LVOT Diameter 2.3 cm LV Diastolic Volume MOD BP 126.2 cm??? 67 - 155 / 56 - 104 cm??? LV Systolic Volume MOD BP 52.9 cm??? 22 - 58 / 19 - 49 cm??? LV Ejection Fraction MOD BP 58.1 % >= 55 % LV Cardiac Index MOD BP 2004.5 cm???/min???m??? LV Diastolic Volume MOD 4C 125.2 cm??? LV Systolic Volume MOD 4C 51.8 cm??? LV Ejection Fraction MOD 4C 58.6 % LV Cardiac Index MOD 4C 2006.5 cm???/min???m??? LV Diastolic Length 4C 8.5 cm LV Systolic Length 4C 6.8 cm LV Diastolic Volume MOD 2C 124.2 cm??? LV Systolic Volume MOD 2C 52.4 cm??? LV Ejection Fraction MOD 2C 57.8 % LV Cardiac Index MOD 2C 1964.0 cm???/min???m??? LV Diastolic Length 2C 8.2 cm LV Systolic Length 2C 7.1 cm LA Volume 72.5 cm??? 18 - 58 / 22 - 52 cm??? LA Volume Index 34.8 cm???/m??? 16 - 28 cm???/m??? Ascending Aorta Diameter 3.8 cm DOPPLER AV Peak Velocity 134.2 cm/s AV Peak Gradient 7.2 mmHg AV Mean Velocity 94.3 cm/s AV Mean Gradient 3.9 mmHg AV Velocity Time Integral 30.9 cm LVOT Peak Velocity 95.4 cm/s LVOT Peak Gradient 3.6 mmHg LVOT Velocity Time Integral 20.1 cm LVOT Stroke Volume 85.9 cm??? LVOT Stroke Volume Index 42.5 ml/m??? LVOT Cardiac Index 2350.3 cm???/min???m??? AV Area Cont Eq vti 2.8 cm??? AV Area Cont Eq pk 3.0 cm??? MV Area PHT 4.7 cm??? Mitral E Point Velocity 94.5 cm/s Mitral A Point Velocity 76.7 cm/s Mitral E to A Ratio 1.2 MV Deceleration Time 160.7 ms TR Peak Velocity 255.2 cm/s TR Peak Gradient 26.1 mmHg Right Atrial Pressure 5.0 mmHg Pulmonary Artery Systolic Pressu 31.1 mmHg Right Ventricular Systolic Press 31.1 mmHg PV Peak Velocity 70.6 cm/s PV Peak Gradient 2.0 mmHg FINDINGS Left Ventricle Left ventricular ejection fraction is estimated at 55-60 %. Mildly dilated left ventricle.Mildly increased left ventricular wall thickness. Right Ventricle Normal right ventricular size and function. Right ventricular systolic pressure within normal limits. Right Atrium Normal right atrial size. Left Atrium Moderately increased left atrial volume. Mildly increased left atrial area. Mitral Valve Mitral valve thickened. No evidence for mitral valve prolapse. No mitral stenosis. Moderate eccentric mitral regurgitation. Aortic Valve Trileaflet aortic valve. Diffuse thickening (sclerosis) of the aortic valve cusps without reduced excursion. No aortic valve stenosis or regurgitation. Tricuspid Valve Structurally normal tricuspid valve. No tricuspid stenosis. Mild tricuspid regurgitation. Pulmonic Valve Pulmonic valve not well visualized. No pulmonic stenosis. No pulmonic regurgitation. Pericardium No pericardial effusion. Aorta Normal size aortic root and proximal ascending aorta. CONCLUSIONS 1. Mildly dilated left ventricle with preserved systolic function 2. Moderate eccentric mitral regurgitation 3. Mild tricuspid regurgitation with no evidence of pulmonary hypertension Previewed by: Dr. Ngozi Jenkins MD (Electronically Signed) Final Date: 19 December 2024 12:07
--- NOTE | 2024-12-19 12:13 | CT ---
EXAMINATION TYPE: CT angio chest DATE OF EXAM: 12/19/2024 11:43 AM COMPARISON: 04/08/2021 CLINICAL INDICATION: Male, 74 years old with history of , chest pain r/o ascedning aortic path, PE; c hest pain r/o ascending aortic path, PE TECHNIQUE/CONTRAST: CTA scan of the thorax is performed with IV Contrast, patient injected with 80mL mL of Isovue 370, NC P images are created and reviewed these are created on a separate workstation.. CT DLP: 835 mGycm, Automated exposure control for dose reduction was used. FINDINGS: Lungs/Pleura: No evidence of focal consolidation, pleural effusion or pneumothorax. Mild intralobular septal thickening. Lingular streaky atelectasis/scarring. Airway: Large airways are patent. Heart: Size within normal limits. No significant coronary artery calcifications. Vasculature: No evidence for intramural hematoma on noncontrast imaging. No evidence of intimal flap to suggest dissection. No aneurysm identified. Scattered atherosclerotic disease. There is no evidenc e for a filling defect within the pulmonary vasculature to suggest acute pulmonary embolism. The pul monary artery is of normal size. Scattered calcified atherosclerotic plaque. The ascending thoracic aorta measures up to 38 mm. Mediastinum: No gross evidence of adenopathy. Musculoskeletal: Moderate disc degeneration changes are present throughout the thoracolumbar spine se condary to osteophyte formation and facet joint arthropathy. Soft Tissues/lymph nodes: Unremarkable. Lower neck: No significant findings. Upper Abdomen: Few scattered colonic diverticula. IMPRESSION: 1. No evidence for aortic aneurysm, dissection or occlusion. No evidence for pulmonary embolus in th e central pulmonary vasculature. 2. Mild pulmonary edema. Findings communicated to Dr Joyce on 12/19/2024 12:[address] Dave Oquendo. Follow up recommendations for incidental pulmonary nodules, if there are any, are per [employer] [place] [employer] [employer] or [employer]. https://radiopaedia.org/articles/ypxoskecrx-[email or web address]?lang=us [facility], , 12/19/2024 12:11 PM
--- NOTE | 2024-12-19 12:23 | P.CRDCN ---
History of Present Illness Consult date: 12/19/24 Requesting physician: Reginald Barajas Reason for Consult (text): nstemi,known Chief complaint: Chest pain History of present illness: Patient is a 74year old male with past medical history of COPD, diabetes mellitus, hyperlipidemia, hypertension presented to the ED with epigastric pain. Patient presented with chest pain that started today. Patient mainly had exertional chest pain and he went to see his primary care doctor. His PCP found him to have EKG changes and sent him to the ED for further evaluation. At the time of this interview the patient denies having any chest pain. Patient denies any trauma or injury. Denies radiation of pain.Denies any associated symptoms. Patient had a myocardial perfusion imaging in 2020 that came in to be slightly abnormal revealing small area of reversibility involving the distal apical/lateral LV but was advised a conservative medical approach. Denies fever, chills, shortness of breath, cough, palpitations,nausea, vomiting, hematuria, dysuria, hematochezia, melena, headache, slurred speech, numbness, tingling, dizziness, lightheadedness, blurred vision, double vision. ED documentation reviewed. In the ED patient was treated with aspirin 325 mg, metoprolol 25 mg, heparin drip Vitals T 98 F, MO 72 bpm, RR 18, BP 144/86, oxygen saturation 96% on room air EKG independently interpreted as sinus rhythm, peaked T waves in V34, first degree AV block with MO 246 ms,, rate 80 bpm, QTc 396 ms Chest x-ray shows no acute cardiopulmonary disease process, COPD changes Labs show WBC 6.77, hemoglobin 16.3, platelet count 231, INR 1.0, D-dimer is 0.79, creatinine 1.34, sodium 138, potassium 4.1 Troponin I 0.323, 2.50 Lipid panel showed triglycerides 140, cholesterol 164, LDL 96, VLDL 28, HDL 39.9 Review of systems: Pertinent positives and negatives as discussed in HPI, a complete review of systems was performed and all other systems are negative. Physical examination: Vital signs reviewed GENERAL: This is a 74-year-old overweight male in no acute respiratory distress. HEENT: Head is atraumatic, normocephalic. Pupils equal, round. Sclerae is ani cteric. NECK: Supple. No JVD. No carotid bruit LUNGS: Clear to auscultation. No wheezes or rhonchi. No intercostal retractions. HEART: Regular rate and rhythm. Ejection systolic 1/6 murmur, No gallop or rub ABDOMEN: Soft No tenderness. EXTREMITIES: Left shoulder tenderness, No pedal edema. No calf tenderness. NEUROLOGICAL: Patient is awake and alert Assessment: NSTEMI Elevated D-dimer Hypertension Diabetes mellitus Hyperlipidemia COPD Chronic kidney disease Plan: Continue heparin drip Started on Aspirin 81 mg PO daily and Atorvastatin 40 mg PO daily Started on metoprolol 25 mg p.o. twice daily, hold currently as patient is bradycardic Echocardiogram obtained, raised suspicion of aortic density. So will Obtain Chest CTA, if unremarkable obtain Coronary angiogram Resume home cardiac medications. Hyzaar held as blood pressure is on the lower side Hydrate patient with 100 ml/hr NS Continue telemetry monitoring Dictation was produced using [employer] dictation software. please excuse any grammatical, word or spelling errors. Toñito Galeas MD PGY-1 IM Past Medical History Past Medical History: COPD, Diabetes Mellitus, Hyperlipidemia, Hypertension, Pneumonia Additional Past Medical History / Comment(s): hx lumbosacral strain History of Any Multi-Drug Resistant Organisms: None Reported Past Surgical History: Hernia Repair Additional Past Surgical History / Comment(s): vasectomy Past Anesthesia/Blood Transfusion Reactions: No Reported Reaction Past Psychological History: No Psychological Hx Reported Smoking Status: Never smoker Past Alcohol Use History: Rare - Past Family History Father Family Medical History: Cancer Sister(s) Family Medical History: Cancer Brother(s) Family Medical History: Myocardial Infarction (MO) Medications and Allergies Home Medications Medication Instructions Recorded Confirmed Type Ascorbic Acid [Vitamin C] 1,000 mg PO DAILY 01/09/22 12/18/24 History Dapagliflozin Propanediol [Farxiga] 10 mg PO DAILY 08/18/23 12/18/24 History Lovastatin [Mevacor] 20 mg PO DAILY 08/18/23 12/18/24 History Cyanocobalamin [Vitamin B-12] 500 mcg PO DAILY 12/18/24 12/18/24 History Donepezil [Aricept] 20 mg PO DAILY 12/18/24 12/18/24 History Losartan/Hydrochlorothiazide 1 tab PO DAILY 12/18/24 12/18/24 History [Hyzaar 100-25 Tablet] Stone-3 600mg 600 mg PO DAILY 12/18/24 12/18/24 History Potassium Gluconate 99 mg PO DAILY 12/18/24 12/18/24 History Allergies Allergy/AdvReac Type Severity Reaction Status Date / Time No Known Allergies Allergy Verified 12/18/24 17:52 Physical Exam Vitals: Vital Signs Temp Pulse Pulse Resp BP BP Pulse Ox 12/19/24 10:35 52 L 18 102/65 95 12/19/24 08:00 98 F 55 L 18 103/59 98 12/19/24 04:13 72 18 144/86 96 12/19/24 04:00 92 21 116/99 96 12/19/24 01:00 62 18 124/80 94 L 12/19/24 00:53 20 114/96 95 12/18/24 22:35 76 18 104/52 97 12/18/24 21:35 64 18 88/78 96 12/18/24 20:36 65 18 88/59 97 12/18/24 19:29 90 18 96/60 96 12/18/24 17:26 97.6 F 85 18 113/70 94 L Intake and Output 12/18/24 12/19/24 12/19/24 22:59 06:59 14:59 Intake Total 112.61 Balance 112.61 Intake: Intake, IV Titration 112.61 Amount Heparin Sod,Pork in 0.45% 112.61 NaCl 25,000 unit In 0.45 % NaCl 1 250ml.bag @ 11.3 UNITS/KG/HR 9.995 mls/hr IV .Q24H [facility] Rx#: [id number] Other: Weight 88.451 kg Results 12/19/24 06:42 12/18/24 18:06 Cardiac Enzymes 12/18/24 12/18/24 12/18/24 Range/Units 18:06 18:06 20:54 AST 25 (17-59) U/L Troponin I 0.323 H* 2.510 H* (0.000-0.034) ng/mL Coagulation 12/18/24 12/18/24 12/19/24 Range/Units 18:06 20:54 06:42 PT 11.0 (10.0-12.5) sec APTT 24.2 60.3 H 36.7 H (22.0-30.0) sec Lipids 12/19/24 Range/Units 06:42 Triglycerides 140.00 (0.00-149.00) mg/dL Cholesterol 164.00 (0.00-200.00) mg/dL HDL Cholesterol 39.90 L (40.00-60.00) mg/dL Cholesterol/HDL Ratio 4.11 Ratio CBC 12/18/24 12/19/24 Range/Units 18:06 06:42 WBC 6.77 (4.50-10.00) 10*3/uL RBC 5.05 (4.40-5.60) 10*6/uL Hgb 16.3 (13.0-17.0) g/dL Hct 45.9 (39.6-50.0) % Plt Count 231 216 (140-440) 10*3/uL Comprehensive Metabolic Panel 12/18/24 Range/Units 18:06 Sodium 138 (137-145) mmol/L Potassium 4.1 (3.5-5.1) mmol/L Chloride 104 (98-107) mmol/L Carbon Dioxide 22 (22-30) mmol/L BUN 22 H (9-20) mg/dL Creatinine 1.34 H (0.66-1.25) mg/dL Glucose 98 (74-99) mg/dL Calcium 10.1 (8.4-10.2) mg/dL AST 25 (17-59) U/L ALT 22 (4-49) U/L Alkaline Phosphatase 55 (38-126) U/L Total Protein 7.3 (6.3-8.2) g/dL Albumin 4.6 (3.5-5.0) g/dL Current Medications Generic Name Dose Route Start Last Admin Trade Name Freq PRN Reason Stop Dose Admin Aspirin 81 mg 12/20/24 09:00 Aspirin 81 Mg PO DAILY [facility] Atorvastatin Calcium 40 mg 12/20/24 09:00 Atorvastatin 40 Mg Tab PO DAILY [facility] Dapagliflozin 10 mg 12/19/24 09:15 12/19/24 10:45 Dapagliflozin Propanediol 10 Mg Tablet PO 10 mg DAILY JAMEL Administration Donepezil HCl 20 mg 12/19/24 09:45 12/19/24 10:45 Donepezil 10 Mg Tab PO 20 mg DAILY [facility] Administration Heparin Sodium/Sodium Chloride 250 mls @ 9.995 mls/hr 12/18/24 20:15 12/19/24 07:51 25,000 unit/ Sodium Chloride IV 11.99 units/kg/hr .Q24H JAMEL 10.605 mls/hr Titration Protocol 11.3 UNITS/KG/HR Sodium Chloride 1,000 mls @ 100 mls/hr 12/19/24 09:45 12/19/24 10:45 Saline 0.9% IV 100 mls/hr .Q10H JAMEL Administration Metoprolol Tartrate 25 mg 12/18/24 21:00 12/19/24 08:12 Metoprolol Tartrate 25 Mg Tab PO Not Given BID JAMEL Nitroglycerin 0.4 mg 12/18/24 20:05 Nitroglycerin Sl Tabs 0.4 Mg Tab SUBLINGUAL Q5M PRN Chest Pain Intake and Output 12/18/24 12/19/24 12/19/24 22:59 06:59 14:59 Intake Total 112.61 Balance 112.61 Intake: Intake, IV Titration 112.61 Amount Heparin Sod,Pork in 0.45% 112.61 NaCl 25,000 unit In 0.45 % NaCl 1 250ml.bag @ 11.3 UNITS/KG/HR 9.995 mls/hr IV .Q24H [facility] Rx#: [id number] Other: Weight 88.451 kg 12/19/24 06:42 12/18/24 18:06
[2024-12-19 12:48] VITALS: BP 111/59; PULSE 63
--- NOTE | 2024-12-19 14:49 | P.PN ---
Subjective Progress Note Date: 12/19/24 Hospital course: Patient is a pleasant 74-year-old male with a past medical history of dementia, hypertension, hyperlipidemia, and COPD not home oxygen dependent. He presented to the emergency department on 12/18/24 secondary to reports of chest pain. Upon arrival to our facility, patient underwent evaluation in the emergency department. Vital signs upon arrival blood pressure 113/70, heart rate 85, respiratory rate 18, temp 97.6 F, and SpO2 of 94% on room air EKG completed showing sinus rhythm with a first-degree AV block with [place] interval of 246 ms and pronounced Q waves in inferior leads II and III. Chest x-ray completed showing changes of COPD with flattening of the diaphragm and increased lucency of lungs otherwise negative for acute cardiopulmonary process. Labs completed and reviewed. CBC unremarkable. Coagulation profile showing slightly elevated D- dimer of 0.79. BMP showing slight elevation of renal function with BUN of 22, creatinine of 1.34, GFR of 52. Blood glucose 98. Calcium 10.1. Magnesium 2.0. Liver profile unremarkable. Troponin was elevated at 0.323. Patient started on low intensity heparin infusion and admitted under services for NSTEMI with consultation to cardiology. Troponins were trended resulting at 0.323 and 2.510. Lipid profile unremarkable with the exception of low HDL of 39.90. Echocardiogram completed showing moderate eccentric mitral regurgitation, mild tricuspid regurgitation with a preserved EF of 55 to 60%. CTA was negative for aortic and revealing mild pulmonary edema and ascending thoracic aorta measuring 38 mm with scattered calcified atherosclerotic plaque. Physical exam: Vital signs reviewed and stable. General: Nontoxic, no distress and appears stated age. Derm: Skin warm and dry, normal coloration for ethnicity. Head: Atraumatic, normocephalic and symmetric. Eyes: EOM's intact, no lid lag, and anicteric sclera Mouth: no lip lesions, mucus membranes moist Cardiovascular: regular rate and rhythm with normal S1S2, systolic murmur, positive posterior tibial pulses bilaterally, and cap refill < 2 seconds. Lungs: Respirations even, regular, and unlabored on room air. Lungs CTA bilaterally, no rhonchi, no rales, no wheezing, and no accessory muscle usage. Abdominal: soft, nontender to palpation, no guarding, no appreciable organomegaly Ext: ROM intact. No gross muscle atrophy, no edema, no contractures Neuro: Speech clear, face symmetrical and CN II-XII grossly intact with no noted focal neuro deficits. GCS 14. Psych: Alert and oriented to person and place. Appropriate and pleasant affect. Assessment and Plan of Care: NSTEMI Hypertension Hyperlipidemia -Cardiology back pain, discussed plan of care with cardiology SASH STICKER.. Continue heparin infusion -Continue heparin infusion with close monitoring of PTT every 6 hours for goal therapeutic range of 45 to 79 seconds. -Telemetry monitoring -Troponins were trended resulting at 0.323 and 2.510. -Lipid profile unremarkable with the exception of low HDL of 39.90. -Echocardiogram completed showing moderate eccentric mitral regurgitation, mild tricuspid regurgitation with a preserved EF of 55 to 60%. -CTA was negative for aortic and revealing mild pulmonary edema and ascending thoracic aorta measuring 38 mm with scattered calcified atherosclerotic plaque. -Aspirin 81 mg daily, atorvastatin 80 mg daily, Farxiga 10 mg daily,and metoprolol 25 mg twice daily. Dementia -Continue Aricept 20 mg daily - Provide safe and supportive care with assistance and redirection as needed. Data and imaging reviewed: -Troponins were trended resulting at 0.323 and 2.510. Lipid profile unremarkable with the exception of low HDL of 39.90. -Echocardiogram completed showing moderate eccentric mitral regurgitation, mild tricuspid regurgitation with a preserved EF of 55 to 60%. -CTA was negative for aortic and revealing mild pulmonary edema and ascending thoracic aorta measuring 38 mm with scattered calcified atherosclerotic plaque. -Vital signs reviewed. Blood pressure 103/59, heart rate 55, respiratory rate 18, temp 98.0 F, SpO2 of 98% on room air. DVT prophylaxis: Heparin infusion Discussed with: Patient's , cardiology SASH STICKER, and RN Anticipated discharge date: Pending clinical course Anticipated discharge place: Pending clinical course Patient was seen independently by Nurse Pracitioner. This document was prepared using [email or web address] dictation software. Please allow for errors in truck spotter, while rare they do occur. Syed Hall NP rendered care for this patient independently, reviewed the findings and plan as documented in the note above and agree with plan. I did not physically speak with or examine the patient on this date. Objective - Vital Signs Vital signs: Vital Signs Temp 98 F 12/19/24 08:00 Pulse 55 L 12/19/24 08:00 Resp 18 12/19/24 08:00 BP 103/59 12/19/24 08:00 Pulse Ox 98 12/19/24 08:00 FiO2 Intake & Output 12/18/24 12/19/24 12/19/24 18:59 06:59 18:59 Intake Total 112.61 Balance 112.61 Weight 88.451 kg Intake: Intake, IV Titration 112.61 Amount Heparin Sod,Pork in 0.45% 112.61 NaCl 25,000 unit In 0.45 % NaCl 1 250ml.bag @ 11.3 UNITS/KG/HR 9.995 mls/hr IV .Q24H [facility] Rx#: [id number] - Labs CBC & Chem 7: 12/19/24 06:42 12/18/24 18:06 Labs: Abnormal Lab Results - Last 24 Hours (Table) 12/18/24 12/18/24 12/18/24 Range/Units 18:06 18:06 18:06 MCH 32.3 H (27.0-32.0) pg APTT (22.0-30.0) sec D-Dimer 0.79 H (<0.60) mg/L FEU BUN 22 H (9-20) mg/dL Creatinine 1.34 H (0.66-1.25) mg/dL Troponin I (0.000-0.034) ng/mL 12/18/24 12/18/24 12/18/24 Range/Units 18:06 20:54 20:54 MCH (27.0-32.0) pg APTT 60.3 H (22.0-30.0) sec D-Dimer (<0.60) mg/L FEU BUN (9-20) mg/dL Creatinine (0.66-1.25) mg/dL Troponin I 0.323 H* 2.510 H* (0.000-0.034) ng/mL 12/19/24 Range/Units 06:42 MCH (27.0-32.0) pg APTT 36.7 H (22.0-30.0) sec D-Dimer (<0.60) mg/L FEU BUN (9-20) mg/dL Creatinine (0.66-1.25) mg/dL Troponin I (0.000-0.034) ng/mL
--- NOTE | 2024-12-19 15:24 | P.DS ---
Providers Date of admission: 12/18/24 20:06 Expected date of discharge: 12/19/24 Attending physician: Washington Silveira MD Consults: 12/18/24 20:05 Consult Physician Routine Consulting Provider: Javon Chan Consult Reason/Comments: nstemi,known Do you want consulting provider notified?: Yes Primary care physician: Raymundo Leal Hospital Course: This is not a discharge summary but a summary of care. Patient was signed out AMA by his . Discharge Diagnosis: NSTEMI Hypertension Hyperlipidemia Dementia Hospital course: Patient is a pleasant 74-year-old male with a past medical history of dementia, hypertension, hyperlipidemia, and COPD not home oxygen dependent. He presented to the emergency department on 12/18/24 secondary to reports of chest pain. Upon arrival to our facility, patient underwent evaluation in the emergency department. Vital signs upon arrival blood pressure 113/70, heart rate 85, respiratory rate 18, temp 97.6 F, and SpO2 of 94% on room air EKG completed showing sinus rhythm with a first-degree AV block with [place] interval of 246 ms and pronounced Q waves in inferior leads II and III. Chest x-ray completed showing changes of COPD with flattening of the diaphragm and increased lucency of lungs otherwise negative for acute cardiopulmonary process. Labs completed and reviewed. CBC unremarkable. Coagulation profile showing slightly elevated D- dimer of 0.79. BMP showing slight elevation of renal function with BUN of 22, creatinine of 1.34, GFR of 52. Blood glucose 98. Calcium 10.1. Magnesium 2.0. Liver profile unremarkable. Troponin was elevated at 0.323. Patient started on low intensity heparin infusion and admitted under services for NSTEMI with consultation to cardiology. Troponins were trended resulting at 0.323 and 2.510. Lipid profile unremarkable with the exception of low HDL of 39.90. Echocardiogram completed showing moderate eccentric mitral regurgitation, mild tricuspid regurgitation with a preserved EF of 55 to 60%. CTA was negative for aortic and revealing mild pulmonary edema and ascending thoracic aorta measuring 38 mm with scattered calcified atherosclerotic plaque. Received notification from cardiology SEAT COVER CUTTER and ED RN that patient's was refusing to allow patient to undergo cardiac catheterization at this time and stating that she is signing patient out of hospital AMA because he does not do well in the hospital secondary to his dementia. Prior to my notification patient's had long discussion with both radio time salesperson and cardiology SEAT COVER CUTTER and cardiac medication prescriptions were sent by cardiology. Notified at 12:34 PM that patient's signed patient out AMA. This document was prepared using [email or web address] dictation software. Please allow for errors in detention attendant while rare they do occur. Syed Hall NP rendered care for this patient independently, reviewed the findings and plan as documented in the note above. I did not physically speak with or examine the patient on this date. Patient Condition at Discharge: Undetermined Plan - Discharge Summary New Discharge Prescriptions: New Clopidogrel [Plavix] 75 mg PO DAILY #30 tablet Aspirin 81 mg PO DAILY tab Metoprolol Tartrate 12.5 mg PO BID #30 tab Continue Dapagliflozin Propanediol [Farxiga] 10 mg PO DAILY Lovastatin [Mevacor] 20 mg PO DAILY Donepezil [Aricept] 20 mg PO DAILY Potassium Gluconate 99 mg PO DAILY Changed Losartan/Hydrochlorothiazide [Hyzaar 100-25 Tablet] 0.5 tab PO DAILY #0 Discontinued [place]-3 600mg 600 mg PO DAILY No Action Ascorbic Acid [Vitamin C] 1,000 mg PO DAILY Cyanocobalamin [Vitamin B-12] 500 mcg PO DAILY Discharge Medication List Ascorbic Acid [Vitamin C] 1,000 mg PO DAILY 01/09/22 [History] Dapagliflozin Propanediol [Farxiga] 10 mg PO DAILY 08/18/23 [History] Lovastatin [Mevacor] 20 mg PO DAILY 08/18/23 [History] Cyanocobalamin [Vitamin B-12] 500 mcg PO DAILY 12/18/24 [History] Donepezil [Aricept] 20 mg PO DAILY 12/18/24 [History] Potassium Gluconate 99 mg PO DAILY 12/18/24 [History] Aspirin 81 mg PO DAILY tab 12/19/24 [Rx] Clopidogrel [Plavix] 75 mg PO DAILY #30 tablet 12/19/24 [Rx] Losartan/Hydrochlorothiazide [Hyzaar 100-25 Tablet] 0.5 tab PO DAILY #0 12/19/24 [Rx] Metoprolol Tartrate 12.5 mg PO BID #30 tab 12/19/24 [Rx] Follow up Appointment(s)/Referral(s): Javon Chan MD [STAFF PHYSICIAN] - 1 Week Raymundo Leal MD [Primary Care Provider] - 1-2 days Patient Instructions/Handouts: Heart Attack (DC) Discharge Disposition: LEFT AGAINST MEDICAL ADVICE
[2024-12-20] MEDS ORDERED: ASPIRIN 81 MG PO SCH (09:00)
[2024-12-20] MEDS ORDERED: ATORVASTATIN 40 MG TAB PO SCH (09:00)
== END 2024-12-19 12:46 | disposition left against medical advice (07) | DRG 282 ==
LOC: EC 17:19 → 3SCARD 20:06
PROVIDERS: ADMIT Internal Medicine; ATTEND Internal Medicine
DX: I21.4 Non-ST elevation (NSTEMI) myocardial infarction (principal); E11.22 Type 2 diabetes mellitus with diabetic chronic kidney disease; F03.90 Unspecified dementia, unspecified severity, without behavioral disturbance, psychotic disturbance, mood disturbance, and anxiety; J44.9 Chronic obstructive pulmonary disease, unspecified; I12.9 Hypertensive chronic kidney disease with stage 1 through stage 4 chronic kidney disease, or unspecified chronic kidney disease; I34.0 Nonrheumatic mitral (valve) insufficiency; N18.9 Chronic kidney disease, unspecified; R79.1 Abnormal coagulation profile; E78.5 Hyperlipidemia, unspecified; I44.0 Atrioventricular block, first degree; Z53.29 Procedure and treatment not carried out because of patient's decision for other reasons; Z79.02 Long term (current) use of antithrombotics/antiplatelets; Z79.82 Long term (current) use of aspirin; Z79.84 Long term (current) use of oral hypoglycemic drugs; Z87.01 Personal history of pneumonia (recurrent); Z79.899 Other long term (current) drug therapy
CPT/HCPCS: 36415; 71046; 71275; 80053; 80061; 83690; 83735; 84484; 85025; 85049; 85379; 85610; 85730; 93005; 93306; 96361; 96365; 96366; 99291

== ENCOUNTER 2024-12-29 05:40 | Day surgery (SDC) | payer MEDICARE, BC ==
[2024-12-27 15:26] VITALS: BMI 29.8
[2024-12-29] MEDS ORDERED: ALPRAZolam 0.5 MG TAB PO PRN (05:58)
[2024-12-29] MEDS ORDERED: NITROGLYCERIN SL TABS 0.4 MG TAB SUBLINGUAL PRN (05:58)
[2024-12-29] MEDS ORDERED: ALPRAZolam 0.25 MG TAB PO PRN (05:58)
[2024-12-29] MEDS: IV FLUID CONTINUATION 1,000 ML IV ONE (06:06)
[2024-12-29] MEDS: SODIUM CHLORIDE 0.9% 1,000 ML in EMPTY BAG 1 BAG IV ONE (06:27)
[2024-12-29 06:29] VITALS: RESP 16; TEMP 97.4
[2024-12-29] MEDS ORDERED: HEPARIN SODIUM,PORCINE 10,000 UNIT in SODIUM CHLORIDE 0.9% 1,000 ML IRRIGATION PRN (07:00)
[2024-12-29] MEDS ORDERED: HEPARIN SODIUM,PORCINE (1 ML) 2,500 UNIT in SODIUM CHLORIDE 0.9% 250 ML IRRIGATION PRN (07:00)
[2024-12-29] MEDS: ASPIRIN 325 MG TAB PO STA (07:06)
[2024-12-29] MEDS: MIDAZOLAM 2 MG/2 ML VIAL IVP ONE ×2 (07:56→08:16)
[2024-12-29] MEDS: LIDOCAINE 1% INJ 10MG/ML (20 ML MDV) SQ ONE (07:56)
[2024-12-29] MEDS: VERAPAMIL SYRINGE (5 MG/10 ML) INTRAARTER ONE (07:59)
[2024-12-29] MEDS: TICAGRELOR 90 MG TAB PO ONE (08:17)
[2024-12-29] MEDS: IOPAMIDOL-370 100ML BTL INJ ONE (08:34)
[2024-12-29] MEDS ORDERED: RX INFO: IV CONTRAST WAS GIVEN 1 EACH MISC MISCELLANE PRN (08:36)
--- NOTE | 2024-12-29 08:41 | P.PCN ---
Date of Procedure: 12/29/24 Operative Findings: CARDIAC CATHETERIZATION PERFORMING PHYSICIAN: Javon Chan MD, RPVI PROCEDURE PERFORMED: 1. Selective right and left coronary angiogram 2. Left heart catheterization 3. Ultrasound-guided access of the right radial artery INDICATION: Presented diagnosis of acute non-ST elevation myocardial infarction in this patient who continues to be symptomatic with chest discomfort COMPLICATION: None APPROACH: Right radial artery LEVEL OF SEDATION: Moderate with a sedation length of 40 minutes PROCEDURE DESCRIPTION: After obtaining an informed consent, the patient was brought to cardiac laboratory equipment cleaner. Local anesthesia was performed using lidocaine subcutaneously. The right radial artery was cannulated using Seldinger technique, under ultrasound guidance, the guidewire passed easily, following that we advanced a 5-Malagasy sheath dilator assembly, the wire and dilator were removed and sheath was flushed. Following that, 2 mg of verapamil along with 5000 unit heparin were given. Selective right and left coronary angiogram using a 5-Malagasy JR4 and JL 3.5 catheters. Following that I did engage the left main using JL 3.5 guiding cath to the diagonal branch but the 1.5 mm balloon was not going because of lack of support The procedure was completed there was no complication. SELECTIVE CORONARY ANGIOGRAM: The right coronary artery: Large caliber vessel the dominant vessel appears to be chronically occluded in the midportion with contralateral collateral Left main: Large caliber vessel calcified with mild disease on The left circumflex: Large caliber vessel with occluded large OM fills by ipsilateral collaterals The left anterior descending artery: Large caliber vessel with severe disease in the mid to distal portion. The LAD proximally gives rise into a large diagonal branch which has critical disease in the proximal portion CONCLUSION: 1. Severe triple-vessel CAD 2. Extremely calcified right and left coronary system POSTPROCEDURE MANAGEMENT: Medical treatment at this point and consider PCI of the diagonal branch and LAD
[2024-12-29] MEDS: SODIUM CHLORIDE 0.9% 1,000 ML IV SCH (08:46)
[2024-12-29 12:30] VITALS: BP 138/70; PULSE 58
== END 2024-12-29 12:24 | disposition home or self-care (01) ==
LOC: CATHCVL 05:40
PROVIDERS: ATTEND Internal Medicine Interventional Cardiology
DX: I25.110 Atherosclerotic heart disease of native coronary artery with unstable angina pectoris (principal); I25.84 Coronary atherosclerosis due to calcified coronary lesion; I25.82 Chronic total occlusion of coronary artery; I10 Essential (primary) hypertension; E11.9 Type 2 diabetes mellitus without complications; E78.5 Hyperlipidemia, unspecified; F03.90 Unspecified dementia, unspecified severity, without behavioral disturbance, psychotic disturbance, mood disturbance, and anxiety; I34.0 Nonrheumatic mitral (valve) insufficiency; Z79.02 Long term (current) use of antithrombotics/antiplatelets; Z79.82 Long term (current) use of aspirin; Z79.84 Long term (current) use of oral hypoglycemic drugs; Z79.899 Other long term (current) drug therapy
CPT/HCPCS: 93458; C1769 ×2; C1894; C1887; C1725; C1753; C1751; J2250; J2003; J1644; Q9967